=== PATIENT | female | born 1945 | race Caucasian/White ===

== ENCOUNTER → 2016-10-23 | Outpatient (CLI) | payer BC ==
[~2016-10-23] MED LIST: ASPI81TA28 PO; GLUCTAB7 PO; MCR/40125 PO; MULT-190 PO; MULTCHW PO; OXYC1CAP5 PO; PRMVC PV; SIMV40TA2 PO; [UNRECOGNIZED DRUG - CODE] PO
[2016-10-23 11:10] LABS: BASO % 0.3 %; BASO ABS # 0.01 K/uL (0-0.2); COMPLETE YES; EOS % 6.3 %; HEMATOCRIT 40.3 % (37-47); IG% 0.3 %; LYMPH % 31.8 %; LYMPH ABS # 1.21 K/uL (1.2-3.4); MEAN CELL VOLUME 89.6 fL (80-100); MEAN CORPUSCULAR HEMOGLOBIN 29.8 pg (25-34); MEAN CORPUSCULAR HGB CONC 33.3 g/dl (32-36); MEAN PLATELET VOLUME 11.4 fL (7.4-10.4); MONO % 8.4 %; NEUT % 52.9 %; PLATELET COUNT 153 K/uL (130-400)
[2016-10-23 11:17] LABS: ALT/SGPT 36 U/L (12-78); AST/SGOT 23 U/L (15-37); BLOOD UREA NITROGEN 16 mg/dl (7-18); CALCIUM 9.3 mg/dl (8.5-10.1); CARBON DIOXIDE 34 mmol/L (21-32); CHLORIDE 103 mmol/L (98-107); CREATININE 0.78 mg/dl (0.60-1.20); GLUCOSE 103 mg/dl (70-99); POTASSIUM 3.8 mmol/L (3.5-5.1); SODIUM 140 mmol/L (136-145)
[2016-10-23 11:28] LABS: ALB/GLOB RATIO 1.2 (0.9-2); ALKALINE PHOSPHATASE 69 U/L (45-117); CHOLESTEROL 170 mg/dl (0-200); CHOLESTEROL/HDL RATIO 2.8; HDL CHOLESTEROL 60 mg/dl; LDL CHOLESTEROL CALCULATED 80 mg/dl; TRIGLYCERIDES 150 mg/dl (0-150); VERY LOW DENSITY LIPOPROT CALC 30 mg/dl
[2016-10-23 11:44] LABS: ESTIMATED AVERAGE GLUCOSE 123 mg/dl; HA1C FLAG Normal (Normal)
--- NOTE | 2016-10-30 08:00 | CODING QUERY MEDICAL NECESSITY ---
SUPPORTING DIAGNOSIS NEEDED Dr. Bess, A supporting diagnosis is required for the test/procedure performed on this patient in order for us to be reimbursed by the patient's insurance. Please provide a supporting diagnosis for the following test/procedure listed below next to the test name along with your signature. *If there is no additional diagnosis for this patient that would support the following test/procedure please document that below next to the test/procedure. Test(s)/Procedure(s) that require a supporting diagnosis: * 52028 GLYCATED HEMOGLOBIN DIAGNOSIS: DATE OF SERVICE: 10/23/16 Provider Signature: Date: Thank you Alejandro Mcgowan [facility] Information Management Once completed, please kindly fax back to [phone] For questions please call [phone]
== END | disposition home or self-care (01) ==
LOC: C.LABBC 07:57
PROVIDERS: ATTEND Internal Medicine
DX: Z00.00 Encounter for general adult medical examination without abnormal findings (principal); R73.01 Impaired fasting glucose

== ENCOUNTER → 2016-11-28 | Outpatient (CLI) | payer BC ==
--- NOTE | 2016-11-28 14:14 | MAMMOGRAPHY REPORT ---
BILATERAL DIGITAL SCREENING MAMMOGRAM WITH CAD: 11/28/2016 CLINICAL HISTORY: Routine screening. Patient has no complaints. TECHNIQUE: Current study was also evaluated with a Computer Aided Detection (CAD) system. Bilateral CC and MLO views were obtained. COMPARISON: Comparison is made to exams dated: 11/04/2014 mammogram, 11/21/2015 mammogram, 11/03/2013 nelida mogram, 10/30/2012 mammogram, 10/30/2011 mammogram, and 10/25/2010 mammogram - [facility] er. BREAST COMPOSITION: There are scattered areas of fibroglandular density in both breasts. FINDINGS: No suspicious masses, calcifications, or areas of architectural distortion are noted in ei ther breast. There has been no significant interval change compared to prior exams. Asymmetry in the right posterior breast on the cc view is stable dating back to at least the 2010 exam. IMPRESSION: ACR BI-RADS CATEGORY 2: BENIGN There is no mammographic evidence of malignancy. A 1 year screening mammogram is recommended. The pa tient will receive written notification of the results. Approximately 10% of breast cancers are not detected with mammography. A negative mammographic report should not delay biopsy if a clinically suggestive mass is present. Dolly Padilla M.D. /:11/28/2016 10:12:21 [place]: Tran LEYVAR M, [facility] letter sent: Normal 1/2 BI-RADS Code: ACR BI-RADS Category 2: Benign
== END | disposition home or self-care (01) ==
LOC: C.MAMM 09:47
PROVIDERS: ATTEND Internal Medicine
DX: Z12.31 Encounter for screening mammogram for malignant neoplasm of breast (principal)

== ENCOUNTER → 2016-12-10 | Outpatient (CLI) | payer BC | END | disposition home or self-care (01) | LOC: C.CPL 10:42 | PROVIDERS: ATTEND Orthopaedic Surgery Sports Medicine | DX: S83.232D Complex tear of medial meniscus, current injury, left knee, subsequent encounter (principal); X58.XXXD Exposure to other specified factors, subsequent encounter ==

== ENCOUNTER → 2017-02-26 | Day surgery (SDC) | payer BC ==
[2017-02-19 08:40] VITALS: Ht 154.9 cm; Wt 81.4 kg
[~2017-02-26] VITALS: Ht 154.9 cm; Wt 81.4 kg
[~2017-02-26] MED LIST changes: +ATROPINE SULFATE 0.1 MG/ML 5ML SYR IV PRN; +ESCI10TA17 PO; +EpHEDrine SULFATE INJ 50 MG/ML AMP IV PRN; +LIDOCAINE HCL 2% 2 ML VIAL (20MG/ML) ONE; -MULT-190 PO; +MULT60CA PO; -OXYC1CAP5 PO; -PRMVC PV; +PROPOFOL IV EMULSION 10 MG/ML 20 ML VIAL IV ONE; +SODIUM CHLORIDE 0.9% 500ML 500 ML IV ONE
--- NOTE | 2017-02-26 09:10 | Endo History and Physical ---
History & Physical Date of Service: Feb 26, 2017. Chief Complaint: History of polyps, family history of colon cancer (sister) Referring Physician: Dr. Michael Bess History of Present Illness H/o polyps Past Surgical History Hx Cardiac Surgery: No Hx Internal Defibrillator: No Hx Pacemaker: No Hx Abdominal Surgery: Yes (PARTIAL HYSTER) Hx of Implantable Prosthesis: No Hx Post-Op Nausea and Vomiting: No Hx Cancer Surgery: No Hx Thoracic Surgery: No Hx Orthopedic: Yes (RT TKA, LT MENISCUS REPAIR) Hx Urinary Tract Surgery: Yes ("BLADDER STITCHED") Family History Colon CA Social History Smoking Status: Never Smoker Hx Substance Use: No Hx Alcohol Use: No Allergies Coded Allergies: Diclofenac (Verified Adverse Reaction, Intermediate, SICK IN STOMACH, ) Current Medications Reported Home Medications Medications Dose Route/Sig Max Daily Dose Days Date Category Preservision Areds 2 (Multiple Vitamins W/ Minerals) 1 Cap Cap 1 Cap PO BID 02/19/17 Reported Lexapro (Escitalopram Oxalate) 10 Mg Tab 10 Mg PO QAM 02/19/17 Reported Aspirin Ec (Aspirin) 81 Mg Tab 81 Mg PO QAM 01/06/15 Reported Glucosamine Chondroitin (Insyqednzom-Tikzvirtuov-Lou C-) 1 Tab Tab 1 Tab PO QAM 01/06/15 Reported Centrum Silver (Multiple Vitamins W/ Minerals) 1 Chw Chw 1 Tab PO QAM 01/06/15 Reported Caltrate 600+D Plus 600-800 mg-Unit (Calcium/Vitamin D) 600 Mg Chew 1 Tab PO BID 06/11/13 Reported Zocor (Simvastatin) 40 Mg Tab 40 Mg PO QPM 02/04/11 Reported Micardis Hct 40MG/12.5MG (Telmisartan/Hydrochlorothiazide) Tab 1 Tab PO QAM 02/04/11 Reported Vital Signs Weight (Kilograms): 81.36 Height (Feet): 5 Height (Inches): 1 Date Time Temp Pulse Resp B/P (MAP) Pulse Ox O2 Delivery O2 Flow Rate FiO2 02/26/17 08:06 36.8 72 18 148/80 (102) 95 Room Air Physical Exam General Appearance: no apparent distress Respiratory/Chest: Auscultation: breath sounds normal Cardiovascular: Heart Auscultation: RRR Abdomen: Inspection & Palpation: soft Assessment and Plan H/o polyps - cscopy
--- NOTE | 2017-02-26 09:43 | Discharge Instructions ---
Endoscopy Patient Instructions Date / Procedure(s) Performed Feb 26, 2017. Colonoscopy Allergy Information Coded Allergies: Diclofenac (Verified Adverse Reaction, Intermediate, SICK IN STOMACH, ) Discharge Date / Findings Feb 26, 2017. Diminutive polyp Medication Instructions Stopped Medication(s): Patient was told to hold everything except for the lexapro this am. Restart Stopped Medication(s): Resume all held medications today. Provider Instructions Activity Restrictions - No exercising or heavy lifting for 24 hours. - Do not drink alcohol the day of the procedure. - Do not drive a car or operate machinery until the day after the procedure. - Do not make any important decisions or sign important papers in 24 hours after the procedure. Following Day: - Return to full activity which may include returning to work/school. Diet Start your diet with liquids and light foods (jello, soup, juice, toast). Then eat your usual diet if not nauseated. Treatment For Common After Affects For mild abdominal pain, bloating, or excessive gas: - Rest - Eat lightly - Lie on right side Follow-Up Information Follow-up with Dr. Michael Bess as scheduled Anesthesia Information What You Should Know You have had a procedure that required some medicine to reduce anxiety and discomfort. This treatment is called moderate sedation. After receiving the treatment, you may be sleepy, but you will be able to breathe on your own. The effects of the treatment may last for several hours. Follow these instructions along with Activity/Diet recommendations noted above: * Do NOT do anything where dizziness or clumsiness would be dangerous. * Rest quietly at home today, then you can be up and about tomorrow. * Have a responsible person stay with you the rest of today. * You may have had an I.V. today. If so, you may take the dressing off later today. Recommendations Call your doctor if: * Trouble breathing * Continuous vomiting for more than 24 hours * Temperature above 101 degrees * Severe abdominal pain or bloating * Pain not relieved by pain medicine ordered * There is increased drainage or redness from any incision * A large amount of rectal bleeding greater than 2-3 tablespoons. (If you had a polyp/s removed or have hemorrhoids, a small amount of blood - from the rectum is to be expected.) * You have any unanswered questions or concerns. IN THE EVENT OF A SERIOUS EMERGENCY, GO TO THE NEAREST EMERGENCY ROOM Your discharge instructions were prepared by provider Leonie Malik. Patient Instructions Signature Page Nicole Espinoza Patient (or Guardian) Signature/Date: I have read and understand the instructions given to me by my caregivers. Caregiver/RN/Doctor Signature/Date: The above-named patient and/or guardian has received patient instructions on this date. + Original Patient Signature Page (only) stays with chart. Please make copy for patient.
--- NOTE | 2017-02-26 09:57 | GI REPORT ---
Procedure Date: 02/26/2017 8:42 AM Procedure: Colonoscopy Indications: Screening in patient at increased risk: Family history of 1st-degree relative with colorectal cancer Medicines: See the Anesthesia note for documentation of the administered medications Complications: No immediate complications. Estimated Blood Loss: Estimated blood loss: none. Procedure: Pre-Anesthesia Assessment: - ASA Grade Assessment: II - A patient with mild systemic disease. After I obtained informed consent, the scope was passed under direct vision. Throughout the procedure, the patient's blood pressure, pulse, and oxygen saturations were monitored continuously. The scope was introduced through the anus and advanced to the terminal ileum. The colonoscopy was performed without difficulty. The patient tolerated the procedure well. The quality of the bowel preparation was good. Findings: The perianal and digital rectal examinations were normal. A 1 mm polyp was found in the transverse colon. The polyp was sessile. The polyp was removed with a cold biopsy forceps. Resection and retrieval were complete. The exam was otherwise without abnormality. Impression: - One 1 mm polyp in the transverse colon, removed with a cold biopsy forceps. Resected and retrieved. - The examination was otherwise normal. Recommendation: - Repeat exam in 5 years, pending pathology review. - Discharge patient to home. Leonie Herron M.D. Leonie Herron MD 02/26/2017 9:56:34 AM This report has been signed electronically. Note Initiated On: 02/26/2017 8:42 AM I attest to the content of the Intraoperative Record and orders documented therein, exceptions below
--- NOTE | 2017-02-26 10:10 | Anesthesiology Progress Note ---
Anesthesia Post Op Note Date & Time Feb 26, 2017 at 10:10 Vital Signs Pain Intensity: 0 Vital Signs Past 12 Hours Date Time Temp Pulse Resp B/P (MAP) Pulse Ox O2 Delivery O2 Flow Rate FiO2 02/26/17 10:02 65 16 173/79 (110) 97 Room Air 02/26/17 09:47 71 18 159/77 (104) 100 Room Air 02/26/17 08:06 36.8 72 18 148/80 (102) 95 Room Air Notes Mental Status: alert / awake / arousable, participated in evaluation Pt Amnestic to Procedure: Yes Nausea / Vomiting: adequately controlled Pain: adequately controlled Airway Patency, RR, SpO2: stable & adequate BP & HR: stable & adequate Hydration State: stable & adequate Anesthetic Complications: no major complications apparent
[2017-02-26 10:17] VITALS: BP 177/81; PULSE 59; O2SAT 99
== END | disposition home or self-care (01) ==
LOC: C.GI 07:39
PROVIDERS: ATTEND Internal Medicine Gastroenterology
DX: Z12.11 Encounter for screening for malignant neoplasm of colon (principal); D12.3 Benign neoplasm of transverse colon; Z86.010 Personal history of colon polyps; Z80.0 Family history of malignant neoplasm of digestive organs; Z79.82 Long term (current) use of aspirin; Z79.899 Other long term (current) drug therapy

== ENCOUNTER → 2017-10-21 | Outpatient (CLI) | payer BC ==
[~2017-10-21] MED LIST changes: -ATROPINE SULFATE 0.1 MG/ML 5ML SYR IV PRN; -EpHEDrine SULFATE INJ 50 MG/ML AMP IV PRN; -LIDOCAINE HCL 2% 2 ML VIAL (20MG/ML) ONE; -PROPOFOL IV EMULSION 10 MG/ML 20 ML VIAL IV ONE; -SODIUM CHLORIDE 0.9% 500ML 500 ML IV ONE; +[UNRECOGNIZED DRUG - CODE] PO; -[UNRECOGNIZED DRUG - CODE] PO
[2017-10-21 10:32] LABS: BASO % 0.7 %; BASO ABS # 0.03 K/uL (0-0.2); EOS % 6.6 %; EOS ABS # 0.29 K/uL (0-0.5); HEMATOCRIT 41.8 % (37-47); HEMOGLOBIN 13.7 g/dL (12.0-16.0); IG# 0.01 K/uL (0.00-0.02); LYMPH ABS # 1.31 K/uL (1.2-3.4); MEAN CELL VOLUME 87.3 fL (80-100); MEAN CORPUSCULAR HEMOGLOBIN 28.6 pg (25-34); MEAN CORPUSCULAR HGB CONC 32.8 g/dl (32-36); MEAN PLATELET VOLUME 11.4 fL (7.4-10.4); MONO % 10.1 %; MONO ABS # 0.44 K/uL (0.11-0.59); NEUT % 52.4 %; NEUT ABS # 2.29 K/uL (1.4-6.5); PLATELET COUNT 155 K/uL (130-400); RED CELL DISTRIBUTION WIDTH CV 13.7 % (11.5-14.5); RED CELL DISTRIBUTION WIDTH SD 43.6 fL (36.4-46.3); WHITE BLOOD COUNT 4.37 K/uL (4.8-10.8)
[2017-10-21 10:50] LABS: HEMOGLOBIN A1C 6.1 % (4.5-5.6)
[2017-10-21 11:04] LABS: ALBUMIN 3.7 gm/dl (3.4-5.0); ALKALINE PHOSPHATASE 70 U/L (45-117); ALT/SGPT 30 U/L (12-78); AST/SGOT 22 U/L (15-37); BLOOD UREA NITROGEN 20 mg/dl (7-18); CALCIUM 9.1 mg/dl (8.5-10.1); CARBON DIOXIDE 29 mmol/L (21-32); CHOLESTEROL 165 mg/dl (0-200); GLUCOSE 104 mg/dl (70-99); LDL CHOLESTEROL CALCULATED 73 mg/dl; POTASSIUM 3.9 mmol/L (3.5-5.1); SODIUM 138 mmol/L (136-145); TOTAL PROTEIN 7.1 gm/dl (6.4-8.2)
== END | disposition home or self-care (01) ==
LOC: C.LABBC 08:01
PROVIDERS: ATTEND Internal Medicine
DX: I10 Essential (primary) hypertension (principal); R73.01 Impaired fasting glucose; F43.20 Adjustment disorder, unspecified; E78.5 Hyperlipidemia, unspecified

== ENCOUNTER 2020-02-15 10:19 | Inpatient (IN) ==
--- NOTE | 2020-01-04 10:42 | PAT Medication Instructions ---
Medication Instructions Date of Service January 04, 2020 Home Medications Medication Instructions Recorded conjugated estrogens 0.625 mg/gram 0.3125 mg PV 2XWK #30 gm 02/18/19 vaginal cream miscellaneous medical supply #1 ea 10/19/19 antiarthritic combination no.2 900 mg tablet 1,800 mg PO BID calcium carbonate 600 mg (1,500 mg)-vitamin D3 200 unit tablet 1 tab PO BID multivitamin 1 cap PO BID conjugated estrogens 0.625 mg/gram vaginal cream 0.3125 mg PV 2XWK aspirin [Aspir-81] 81 mg PO QAM escitalopram oxalate 10 mg PO QAM ibuprofen 400 mg PO Q6H PRN simvastatin 40 mg PO HS telmisartan-hydrochlorothiazide 1 tab PO QAM omega-3 fatty acids 1,000 mg capsule 1,000 mg PO DAILY Continue as directed conjugated estrogens 0.625 mg/gram vaginal cream 0.3125 mg PV 2XWK ASK your surgeon for instructions ibuprofen 400 mg PO Q6H PRN STOP taking 2 weeks before surgery If surgery is within 2 weeks, stop taking as soon as possible. antiarthritic combination no.2 900 mg tablet 1,800 mg PO BID omega-3 fatty acids 1,000 mg capsule 1,000 mg PO DAILY DO NOT take the morning of surgery calcium carbonate 600 mg (1,500 mg)-vitamin D3 200 unit tablet 1 tab PO BID multivitamin 1 cap PO BID telmisartan-hydrochlorothiazide 1 tab PO QAM Take morning of surgery With a small sip of water, OTHERWISE NOTHING TO EAT OR DRINK AFTER MIDNIGHT: aspirin [Aspir-81] 81 mg PO QAM escitalopram oxalate 10 mg PO QAM Take evening before surgery calcium carbonate 600 mg (1,500 mg)-vitamin D3 200 unit tablet 1 tab PO BID multivitamin 1 cap PO BID simvastatin 40 mg PO HS Other Notes If you have any questions please call us at [phone] or [phone] or [phone] or [phone]
--- NOTE | 2020-01-06 08:53 | Anesthesiology Consultation ---
Date of Service January 06, 2020 Assessment & Plan (1) Encounter for pre-operative examination: COVID Status: As of 01/05 assessment, patient denies travel to endemic area, known exposure/sick contacts, or symptoms of COVID19. Patient instructed that they and their household members must follow strict social distancing guidelines, wear a mask in public and avoid travel for 14 days prior to surgery. Preoperative COVID19 testing to be completed prior to surgery per surgeon's arreddi allan (pt reports date set for 01/13). Patient made aware to self-isolate as much as possible between COVID testing and surgery. PCP Clearance 12/28/19 = "Pending normal preop testing, she is low risk for cardiac complications with upcoming knee replacement surgery." Preoperative testing unremarkable other than mildly reduced WBC count. Labs available for PCP review -- awaiting final clearance. Chart Review Chart Review: Acceptable Risk for Surgery and Patient seen in Pre Admission Testing Teaching & Discussion Instructed NPO after midnight before surgery, except medications with 15 cc of water. Medication instructions provided according to the PAT guidelines. History Surgery Operation Date: 01/20/20 07:30 Proposed Procedures p Left Total Knee Arthroplasty - Mango Monsivais MD Height/Weight Height: 5 ft 1 in Weight: 84.5 kg Allergies Allergy/AdvReac Type Severity Reaction Status Date / Time diclofenac Allergy ELEVATED Verified 12/29/19 09:29 LFT's/NAUSEA capsaicin AdvReac Intermediate SICK IN Verified 12/29/19 09:29 STOMACH Diclopak AdvReac Intermediate SICK IN Verified 02/26/17 08:36 STOMACH Medications Home Medications Medication Instructions Recorded Confirmed Last Taken antiarthritic combination no.2 900 1,800 mg PO BID tab 10/21/18 12/29/19 Unknown mg tablet calcium carbonate 600 mg (1,500 1 tab PO BID 10/21/18 12/29/19 Unknown mg)-vitamin D3 200 unit tablet vitamins A,C,Y-vzxs-tssqgg 14,320 1 cap PO BID cap 10/21/18 12/29/19 Unknown unit-226 mg-200 unit capsule conjugated estrogens 0.625 mg/gram 0.3125 mg PV 2XWK #30 gm 02/18/19 12/29/19 Unknown vaginal cream miscellaneous medical supply #1 ea 10/19/19 10/19/19 Unknown aspirin [Aspir-81] 81 mg PO QAM 12/22/19 12/29/19 Unknown escitalopram oxalate 10 mg PO QAM 12/22/19 12/29/19 Unknown ibuprofen 400 mg PO Q6H PRN 12/22/19 12/29/19 Unknown simvastatin 40 mg PO HS 12/22/19 12/29/19 Unknown telmisartan-hydrochlorothiazid 1 tab PO QAM 12/22/19 12/29/19 Unknown omega-3 fatty acids 1,000 mg 1,000 mg PO DAILY 12/29/19 12/29/19 Unknown capsule Past Medical History Medical History Adult situational stress disorder Depression Hyperlipidemia Hypertension Impaired fasting glucose Left hip pain Sleep apnea CPAP SOB (shortness of breath) on exertion 1 FLIGHT Tremor HANDS-NO DX Varicose veins of leg with pain Exercise / Class Metabolic Activity II 4-5 Yardwork/Stairs/Walk up hill (Mild CERON with 1 FOS but does daily, SOB felt 2/2 knee pain/difficulty, no chest pain) Past Family History Family History Sister Rectal cancer Colorectal cancer Aunt Breast cancer Brother Leukemia Father , age 87 Acute venous embolism and thrombosis of deep vessels of proximal end of both lower extremities Denies family history of Ovarian cancer Prostate cancer Myocardial infarction Past Surgical History Surgical History H/O colonoscopy H/O oral surgery History of bladder surgery "TUCK" FOR STRESS INCONTINENCE History of meniscectomy of left knee 2016 History of total abdominal hysterectomy with ovary removal History of total knee arthroplasty RIGHT-2013 Past Anesthesia History No Hx of Anesthesia Complications and No Family Hx of Anesthesia Complications History of PONV No Hx of PONV and No Hx of Motion Sickness Social History Smoking Status: Never smoker Do You Dip or Chew Tobacco: No Hx Alcohol Use: Yes Alcohol type: wine alcohol intake frequency: a few times a month Hx Substance Use: No Review of Systems Pt denies any recent chest pain, shortness of breath, palpitations, cough, fever, URI, or uncontrolled acid reflux. Physical Exam Vital Signs BP: 133/82 P: 70bpm SPO2: 96% RA T: 98.3 F R: 12 ENMT Mouth: + dental restorations (one implant lower Left molar); no chipped teeth and no loose teeth Thyromental Distance: > or= 3.5 Finger Breadths Mallampati Class: I Neck normal visual inspection; neck extension not limited Respiratory normal respiratory effort Auscultation: lungs clear to auscultation bilaterally Cardiovascular Rate/Rhythm: regular rate and regular rhythm Heart Sounds: no murmur Vessels: no carotid bruit Testing Laboratory Results 01/06/20 09:05 01/06/20 09:05 PT 10.3 Seconds (9.0-12.0) 01/06/20 09:05 INR 1.0 (0.9-1.1) 01/06/20 09:05 APTT 29.6 Seconds (21.0-31.0) 01/06/20 09:05 Hemoglobin A1c 6.0 % (4.5-5.6) H 01/06/20 09:05 Urine Color Yellow 01/06/20 09:05 Urine Appearance Cloudy (Clear) A 01/06/20 09:05 Urine pH 7.0 (4.5-7.5) 01/06/20 09:05 Ur Specific [place] 1.019 (1.000-1.030) 01/06/20 09:05 Urine Protein Negative (Negative) 01/06/20 09:05 Urine Glucose (UA) Negative (Negative) 01/06/20 09:05 Urine Ketones Negative (Negative) 01/06/20 09:05 Urine Nitrite Negative (Negative) 01/06/20 09:05 Ur Leukocyte Esterase Negative (Negative) 01/06/20 09:05 Urine WBC (Auto) 5-10 /hpf (0-5) H 01/06/20 09:05 Urine RBC (Auto) 0-4 /hpf (0-4) 01/06/20 09:05 U Hyaline Cast (Auto) 1-5 /lpf (0-5) 01/06/20 09:05 U Epithel Cells (Auto) >30 /lpf (0-5) H 01/06/20 09:05 Urine Bacteria (Auto) 1+ (Negative) H 01/06/20 09:05 Blood Type O Positive 01/06/20 09:05 Antibody Screen NEGATIVE 01/06/20 09:05 01/06/20 09:05 Urine Culture - Final Urine,Clean Catch More than three types of organisms present, all low counts mixed probable skin chemo. No further identifications or sensitivities to follow. Electrocardiogram Date: 01/06/20 Findings: + NSR @ (70bpm) No significant change from 12/10/16. Chest X-Ray Date: 01/06/20 1. No acute cardiopulmonary findings. 2. Mild cardiomegaly.
--- NOTE | 2020-01-06 09:37 | XRay Report ---
XR chest Pre-admission PA/Lat CLINICAL HISTORY: Preoperative evaluation. COMPARISON STUDY: Chest radiograph June 11, 2013. FINDINGS: Lung volumes are normal. There is no pneumothorax or pleural effusion. Mild cardiomegaly is noted. There is no evidence for pulmonary edema. IMPRESSION: 1. No acute cardiopulmonary findings. 2. Mild cardiomegaly. ACT 112: Negative or not required by law. Electronically signed by: Johan Boggs M.D. 01/06/2020 9:36 AM
[2020-01-06 10:25] LABS: Basophils # (auto) 0.03 K/uL (0-0.2); Basophils % (auto) 0.7 %; Eosinophils # (auto) 0.24 K/uL (0-0.5); Eosinophils % (auto) 5.9 %; Hematocrit (blood only) 42.1 % (37-47); Immature Granulocytes # (auto) 0.01 K/uL (0.00-0.02); Immature Granulocytes % (auto) 0.2 %; Lymphocytes # (auto) 1.09 K/uL (1.2-3.4); Lymphocytes % (auto) 26.7 %; Mean Corpuscular Hemoglobin 27.9 pg (25-34); Mean Corpuscular Hgb Conc 30.9 g/dL (32-36); Mean Corpuscular Volume 90.3 fL (80-100); Mean Platelet Volume 11.4 fL (7.4-10.4); Monocytes % (auto) 7.3 %; Neutrophils # (auto) 2.42 K/uL (1.4-6.5); Neutrophils % (auto) 59.2 %; Platelet Count 155 K/uL (130-400); RDW Coefficient of Variation 13.8 % (11.5-14.5); RDW Standard Deviation 45.5 fL (36.4-46.3); Red Blood Count 4.66 M/uL (4.2-5.4); White Blood Count 4.09 K/uL (4.8-10.8)
[2020-01-06 10:28] LABS: Appearance Urine Cloudy (Clear); Bilirubin Urine Negative (Negative); Blood Urine Negative (Negative); Color Urine Yellow; Epithelial Cell Urine Auto >30 /lpf (0-5); Glucose Urine UA Negative (Negative); Ketones Urine Negative (Negative); Leukocyte Esterase Urine Negative (Negative); Nitrite Urine Negative (Negative); Protein Urine Negative (Negative); Specific Gravity Urine 1.019 (1.000-1.030); Urobilinogen Urine Negative (Negative)
[2020-01-06 10:33] LABS: Albumin Level 3.3 gm/dl (3.4-5.0); BUN Creatinine Ratio 33.6 (10-20); Calcium 9.4 mg/dl (8.5-10.1); Creatinine Clr Calc Pharmacy 70.5 ml/min; Est GFR (African American) 99.2; Est GFR (Non-African American) 85.6; Potassium 4.3 mmol/L (3.5-5.1)
[2020-01-06 10:43] LABS: Partial Thromboplastin Ratio 1.1; Partial Thromboplastin Time 29.6 Seconds (21.0-31.0); Prothrombin Time 10.3 Seconds (9.0-12.0)
[2020-01-06 11:09] LABS: Estimated Average Glucose 126 mg/dl
[2020-01-06 11:25] LABS: Bacteria Urine Automated 1+ (Negative); RBC Urine Automated 0-4 /hpf (0-4)
--- NOTE | 2020-01-06 11:54 | Electrocardiogram Report ---
Test Reason : Blood Pressure : / mmHG Vent. Rate : 070 BPM Atrial Rate : 070 BPM P-R Int : 142 ms QRS Dur : 080 ms QT Int : 384 ms P-R-T Axes : 076 017 047 degrees QTc Int : 414 ms Normal sinus rhythm Normal ECG When compared with ECG of 10-DEC-2016 10:56, No significant change was found Confirmed by Orlando Carr ([id number]) on 01/06/2020 11:53:48 AM Referred By: Mango Monsivais Confirmed By:Turner Carr
--- NOTE | 2020-02-14 17:46 | History and Physical Report ---
DATE OF ADMISSION: 02/15/2020 CHIEF COMPLAINT: Chronic left knee pain. HISTORY OF PRESENT ILLNESS: This is a 74-year-old female patient of Dr. Monsivais'sandi complaining of chronic left knee pain, longstanding, now progressively getting worse. The patient has failed conservative treatment and she has increased pain with weightbearing activities and her pain does interfere with her activities of daily living. The patient has been diagnosed with end-stage osteoarthritis per clinical and radiographic exams. She has failed intra-articular injections, anti-inflammatories, home exercise program and the use of a sleeve. The patient wishes to proceed with an elective left total knee arthroplasty. PAST MEDICAL HISTORY: Hypertension, hypercholesterolemia, sleep apnea with the use of CPAP, anxiety, osteoarthritis, sciatica, obesity. SOCIAL HISTORY: Nonsmoker and nondrinker. PAST SURGICAL HISTORY: Right knee replacement and hysterectomy. FAMILY HISTORY: Noncontributory. REVIEW OF SYSTEMS: Chronic left knee pain, otherwise denies any shortness of breath, chest pain, nausea, vomiting or other joint complaints. MEDICATIONS: 1. Simvastatin 40 mg daily. 2. PreserVision daily. 3. Glucosamine chondroitin daily. 4. Premarin 0.625 mg cream via vagina daily as needed. 5. Caltrate with vitamin D3 200 mg/800 mg daily. 6. Aspirin 81 mg daily. 7. Micardis 40/12.5 daily. 8. Protonix 40 mg daily. ALLERGIES: DICLOFENAC SODIUM, WHICH CAUSES GI UPSET. PHYSICAL EXAMINATION: GENERAL: Well-developed, well-nourished 74-year-old female in no acute distress. She is alert and oriented x3 and pleasant. HEENT: Normocephalic, atraumatic. Extraocular motions are intact. Pupils are equal and reactive to light. HEART: Regular rate and rhythm, no murmurs appreciated. LUNGS: Clear. ABDOMEN: Soft, nontender, bowel sounds present. EXTREMITIES: Left knee varus deformity. Medial joint line tenderness. Range of motion 0-115. Crepitation with range of motion, 5/5 strength. Neurologically and neurovascularly, she is intact in her left lower extremity. DIAGNOSES: Left knee end-stage osteoarthritis, hypertension, hypercholesterolemia, sleep apnea with use of CPAP, anxiety, osteoarthritis and obesity. PLAN: The patient was advised of her diagnosis. Indications, risks, benefits, postop course have all been reviewed. The patient wished to proceed with a left total knee arthroplasty. Necessary consent forms, preoperative testing and clearances will be obtained.
[~2020-02-15 10:19] MED LIST changes: +ACETAMINOPHEN 500 MG TAB PO SCH; -ASPI81TA28 PO; +BUPIVACAINE 0.25% 30 ML VIAL ONE; +BUPIVACAINE 0.5 % 5 MG/1 ML PF 10ML VIAL ONE; +CeleBREX 200 MG CAP PO SCH; -ESCI10TA17 PO; +FAMOTIDINE 20 MG TAB PO SCH; +GABAPENTIN 300 MG CAP PO SCH; -GLUCTAB7 PO; +LIDOCAINE HCL 2% 2 ML VIAL/AMP(20MG/ML) INFIL ONE; +LR 500ML BOLUS, THEN 15ML/HR IV SCH; -MCR/40125 PO; +METOCLOPRAMIDE HCL 10 MG TABLET PO SCH; +MIDAZOLAM HCL 1 MG/ML 2ML VIAL ONE; -MULT60CA PO; -MULTCHW PO; +PROPOFOL IV EMULSION 10 MG/ML 20 ML VIAL IV ONE; +ROPIVACAINE 0.5% HCL/PF 150 MG, BUPIVACAINE 0.5% MPF 30 ML, EPINEPHrine 30MG/30ML (OR U... INSTIL SCH; -SIMV40TA2 PO; +TRANEXAMIC ACID 1,000 MG **IV Intra-op IV SCH; +TRANEXAMIC ACID 1,000 MG **IV Pre-op IV SCH; -[UNRECOGNIZED DRUG - CODE] PO; +ceFAZolin 2000MG 2,000 MG/15 ML SYR IV SCH; +dexAMETHasone 4 MG TAB PO SCH; +fentaNYL citrate 100 MCG/2 ML VIAL ONE
--- NOTE | 2020-02-15 11:50 | History & Physical Bridge Note ---
Date of Service February 15, 2020 History & Physical Bridge Note I have examined the patient, reviewed the History & Physical and in the interval since the performance of the History & Physical I have noted the following changes of clinical significance: no changes noted
[2020-02-15] MEDS ORDERED: BACITRACIN INJ 50,000 UNIT VIAL ONE (12:20)
[2020-02-15] MEDS ORDERED: ORTHO JOINT ANESTHETIC ONE (12:20)
[2020-02-15] MEDS ORDERED: MIDAZOLAM HCL 1 MG/ML 2ML VIAL ONE (13:08)
[2020-02-15] MEDS ORDERED: ONDANSETRON INJ 2 MG/ML 2 ML VIAL ONE (13:26)
[2020-02-15] MEDS ORDERED: ATROPINE SULFATE 0.1 MG/ML 10ML SYR IV PRN (14:08)
[2020-02-15] MEDS ORDERED: ePHEDrine sulfate 50 MG/ML AMP IV PRN (14:08)
[2020-02-15] MEDS ORDERED: ONDANSETRON INJ 2 MG/ML 2 ML VIAL IV PRN ×2 (14:08→16:31)
[2020-02-15] MEDS ORDERED: fentaNYL citrate 100 MCG/2 ML VIAL IV PRN (14:08)
[2020-02-15] MEDS ORDERED: PROPOFOL IV EMULSION 10 MG/ML 20 ML VIAL IV ONE (14:12)
--- NOTE | 2020-02-15 14:39 | Post Operative Brief Note ---
Immediate Post Op Note v1 Date of Surgery February 15, 2020 Pre & Post Diagnosis Operation Date: 02/15/20 12:30 Pre-Op Diagnosis: Left Knee End-Stage Osteoarthritis, obesity BMI 35 Post-Op Diagnosis: Left Knee End-Stage Osteoarthritis, obesity BMI 35 I identified the patient and participated in the time-out.: Yes Procedure Operation Date: 02/15/20 12:30 Actual Procedures p Left Total Knee Arthroplasty(Left), superficial wound VAC- Mango Monsivais MD Surgeon Mango Monsivais MD Mild Disabilities Teacher DAVID Bravo Estimated Blood Loss 5 Findings Consistent with Post-Op Diagnosis Specimens Bone cuts Drains Hemovac Drain Anesthesia Type MAC Spinal Regional Complications none Disposition Accompanied Patient To Recovery: No Disposition: Recovery Room Overlapping Procedure I was present for: the critical portions of procedure. Back up surgeon: was not required during procedure.
--- NOTE | 2020-02-15 15:44 | XRay Report ---
XR knee LT 1 or 2V routine CLINICAL HISTORY: Surgical Post Op COMPARISON: None FINDINGS: Alignment of the total left knee arthroplasty is anatomic. There is no periprosthetic frac ture. There is no unexpected radiopaque foreign body. There are drains and skin richa. IMPRESSION: Expected findings following total left knee arthroplasty. ACT 112: Negative or not required by law. Electronically signed by: Johan Boggs M.D. 02/15/2020 3:42 PM
--- NOTE | 2020-02-15 15:55 | Anesthesiology Progress Note ---
Date of Service February 15, 2020 Anesthesia Post Procedure Vital Signs Vital Signs: Temp Pulse Pulse Resp BP BP Pulse Ox 02/15/20 15:50 36.6 C 75 16 144/73 H 94 02/15/20 15:40 78 24 165/85 H 93 02/15/20 15:30 78 20 163/93 H 94 02/15/20 15:20 76 19 157/79 H 100 02/15/20 15:11 36.5 C 83 16 160/76 H 98 02/15/20 10:56 36.9 C 75 16 189/78 H 96 Transfer of Care Handoff Completed per policy Notes Mental Status: alert / awake / arousable and participated in evaluation Nausea / Vomiting: adequately controlled Pain: adequately controlled Airway Patency, RR, SpO2: stable & adequate BP & HR: stable & adequate Hydration State: stable & adequate Neuraxial Anesthesia: was administered and sensory block is resolving Anesthetic Complications: no major complications apparent and Pt Satisfied with anesthetic care
[2020-02-15] MEDS: SODIUM CHLORIDE 0.9% 1000ML 1,000 ML IV SCH (16:00)
[2020-02-15] MEDS ORDERED: MAGNESIUM HYDROXIDE SUSP 30 ML UDC PO PRN (16:31)
[2020-02-15] MEDS ORDERED: bisacodyL 10 MG SUPP PR PRN (16:31)
[2020-02-15] MEDS ORDERED: NALOXONE HCL 0.4 MG/1 ML VIAL/CARP IV PRN (16:31)
[2020-02-15] MEDS ORDERED: diphenhydrAMINE Capsule 25 MG CAP PO PRN (16:31)
[2020-02-15] MEDS ORDERED: oxyCODONE HCL IR 5 MG TAB (IMMEDIATE RELEASE) PO PRN (16:31)
[2020-02-15] MEDS ORDERED: HYDROmorphone INJ 0.5 MG/0.5 ML SYR IV PRN (16:31)
--- NOTE | 2020-02-15 17:06 | Operative Report ---
Post Operative Report Pre & Post Diagnosis Operation Date: 02/15/20 12:30 Pre-Op Diagnosis: Left Knee End-Stage Osteoarthritis, obesity BMI 35.4 Post-Op Diagnosis: Left Knee End-Stage Osteoarthritis I identified the patient and participated in the time-out.: Yes Procedure Operation Date: 02/15/20 12:30 Actual Procedures p Left Total Knee Arthroplasty(Left), application superficial wound VAC some increased difficulty due to obesity- Mango Monsivais MD Surgeon Mango Monsivais MD Air Conditioning Unit Tester DAVID Bravo Estimated Blood Loss 5 Findings Consistent with Post-Op Diagnosis Specimens Bone cuts Drains 2 Hemovac Anesthesia Type MAC Spinal Regional Complications none Disposition Accompanied Patient To Recovery: No Disposition: Recovery Room Indications 74-year female with progressive osteoarthritis her left knee failed conservative management. Patient has successful right knee replacement in the past. Left knee has varus knee medial and patellofemoral osteoarthritis [id number] medial compartment. Description of Procedure The patient was taken to the operating room and anesthetized under spinal MAC regional. Patient was placed supine on the the operating table. A pneumatic tourniquet was placed about the obese left upper thigh. The knee exam demonstrated obese knee with an effusion moderately large and 5 through 120 degrees range of motion. The involved leg was elevated exsanguinated with Esmarch bandage and the pneumatic tourniquet was raised to 350 millimeters mercury. A longitudinal incision was made across the anterior knee. Skin flaps were elevated. An incision was made into the medial retinaculum and extended up into the mid third of the quadriceps tendon and extended down to the tibial tubercle. Intra-articular findings demonstrated medial compartment and patellofemoral OA. She had very large patellofemoral osteophytes circumferentially. She had several loose bodies. There is [id number] medial compartment.. The knee was exposed by excising cruciate ligaments and menisci. The infrapatellar fat pad was resected. The fat pad over the anterior femur at the upper aspect of the articular surface was resected for placement of the component in that area. A subperiosteal peel lateral release was performed around the patella The [employer] Yummlyney 2.0 total knee arthroplasty system was utilized for the procedure. The custom femoral cutting guide was pinned in position. The distal femoral cut was made. The size 4, 5 in 1 cutting block was placed. The anterior posterior and chamfer cuts were made. The knee was extended and a free hand cut technique was performed to the patella. The patella with was measured and the width was reproduced using a 32 patella component. 3 drill holes are made for the patella component pegs. The tibia was then subluxed. The custom tibial cutting block was pinned in position and the proximal tibial cut was made with the oscillating saw. The size 2 tibial trial was externally rotated in line with the tibial tubercle and pinned in position. The punch for the stem was used. The femoral trial was inserted and centered the notch cutting devices were used and the collet was placed. Tibial trials were used for the insert. The size 11 trial gave balanced ligaments through full range of motion. Patella tracking was assessed with range of motion. The patella tracked centrally. The trials were removed. The Orthomix anesthetic cocktail was injected per protocol. The cut bone surfaces and soft tissue were copiously irrigated with antibiotic solution with bacitracin. The final components were cemented with Simplex cement. The final components were [employer]hew journey 2.0 size 4 posterior stabilized left femur, 2 tibial baseplate, 11 mm posterior stabilized tibial poly insert, 32 symmetrical patella. After the cement cured the Betadine soak was used per protocol. the knee was copiously irrigated with pulsatile lavage antibiotic solution with bacitracin. 2 drains were brought out laterally connected to Hemovac. The quadriceps tendon and medial retinaculum were closed with interrupted [id number] #1 Vicryl sutures. The knee was taken through full range of motion and repair was secure. The subcutaneous tissues were closed with 2-0 Vicryl sutures. The skin was closed with richa. A sterile dressing was applied. The tourniquet was let down and the patient had good capillary refill to the extremity. The patient tolerated the procedure well. My physician visitor service assistant DVAID Bravo assisted in the procedure including prepping draping leg positioning soft tissue retraction instrument management and assisted in the closure , as well as application of the superficial wound VAC and will participate in postoperative care the patient. There was some increased level difficulty due to the obesity being primarily around the thigh and knee area of the patient.. I attest to the content of the Intraoperative Record and any orders documented therein. Any exceptions are noted below.
--- NOTE | 2020-02-15 18:08 | Hospitalist Consultation ---
Date of Consultation February 15, 2020 Assessment & Plan (1) DJD (degenerative joint disease): Patient status post left total knee arthroplasty 02/15/[address] Chavez Preoperative negative Covid testing 02/09/2020 (2) Hypertension: HOLD HCTZ HOLD ARB Check BMP in am Trend BPs If Cr is stable and BPs rise then reinstitute home meds Check mag level in am as well given the HCTZ use and brisk reflexes (3) Hyperlipidemia: Cont statin (4) Sleep apnea: Allow home CPAP usage. If not available then may use hospital CPAP. (5) Adult situational stress disorder: Patient takes Lexapro for her anxiety and depression (6) DVT prophylaxis: asa 81mg BID Thank you for this consult. Will follow with you. (7) S/P total knee replacement: LEFT. By Dr Monsivais. Defer pain control, IV fluids, DVT proph, dispo to orthopedics. Check CBC, BMP, mag in am. (8) Impaired fasting glucose: a1c 6% earlier this year would change diet to T2DM had steroids today - would trend BSGs (9) Depression: Cont SSRI History of Present Illness Attending Physician: Mango Monsivais MD patient is status post left total knee arthroplasty 02/15/2020 Allergies Allergy/AdvReac Type Severity Reaction Status Date / Time diclofenac Allergy ELEVATED Verified 02/15/20 10:42 LFT's/NAUSEA capsaicin AdvReac Intermediate SICK IN Verified 02/15/20 10:42 STOMACH Diclopak AdvReac Intermediate SICK IN Verified 02/26/17 08:36 STOMACH Home Medications Medication Instructions Recorded Confirmed Type antiarthritic combination no.2 900 1,800 mg PO BID tab 10/21/18 02/15/20 History mg tablet calcium carbonate 600 mg (1,500 1 tab PO BID 10/21/18 02/15/20 History mg)-vitamin D3 200 unit tablet vitamins A,C,X-prpb-yeowax 14,320 1 cap PO BID cap 10/21/18 02/15/20 History unit-226 mg-200 unit capsule conjugated estrogens 0.625 mg/gram 0.3125 mg PV 2XWK #30 gm 02/18/19 02/15/20 Rx vaginal cream miscellaneous medical supply #1 ea 10/19/19 02/15/20 Rx escitalopram oxalate 10 mg PO QAM 12/22/19 02/15/20 History simvastatin 40 mg PO HS 12/22/19 02/15/20 History omega-3 fatty acids 1,000 mg 1,000 mg PO DAILY 12/29/19 02/15/20 History capsule telmisartan 40 1 tab PO DAILY #90 tab 01/14/20 02/15/20 Rx mg-hydrochlorothiazide 12.5 mg tablet acetaminophen 1,000 mg PO Q8 30 Days #180 tab 02/16/20 Rx aspirin 81 mg PO BID 30 Days #60 tab 02/16/20 Rx oxycodone 5 mg PO Q4H PRN #30 tab 02/16/20 Rx Patient History Medical History (Updated 02/16/20 @ 06:05 by Jareth Cabrera) Adult situational stress disorder Depression Hyperlipidemia Hypertension Impaired fasting glucose Left hip pain Sleep apnea CPAP SOB (shortness of breath) on exertion 1 FLIGHT Tremor HANDS-NO DX Varicose veins of leg with pain Surgical History (Updated 02/16/20 @ 06:05 by Jareth Cabrera) H/O colonoscopy H/O oral surgery History of bladder surgery "TUCK" FOR STRESS INCONTINENCE History of meniscectomy of left knee 2016 History of total abdominal hysterectomy with ovary removal History of total knee arthroplasty RIGHT-2013 Family History Sister Rectal cancer Colorectal cancer Aunt Breast cancer Brother Leukemia Father , age 87 from acute [place] Acute venous embolism and thrombosis of deep vessels of proximal end of both lower extremities Myocardial infarction Mother Myocardial infarction Denies family history of Ovarian cancer Prostate cancer Social History (Updated 02/16/20 @ 06:01 by Jareth Cabrera) Smoking Status: Never smoker Second Hand Exposure: Yes (SPOUSE USED TO SMOKE/FATHER SMOKED); Hx Alcohol Use: Yes Alcohol type: wine Hx Substance Use: No Preferred Language: Romanian Communication Ability: Effective Visual Impairment: Limited Hearing Ability: Normal Thermostatic Controls Supervisor Required: No Beliefs That Will Affect Care: None marital status: Current Living Situation: Spouse Current Living Situation Comment: [place] current occupational status: 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 Feels Safe at Home: Yes Childhood Exposure to Second-Hand Smoke: Yes caffeine: Yes during the past year weight has: increased > 10 lbs Dental Care, Regularly: Yes Physical Activity Frequency: 3-4 Times per Week Seatbelt Use: always Sunscreen Use: Yes Assistive Devices: Walker Results & Data Results & Data ([facility]) Vital Signs (Past 12 Hours) Vital Signs Temp Pulse Pulse Resp BP BP Pulse Ox 02/15/20 17:06 66 16 139/78 93 02/15/20 16:28 97.5 F L 61 16 128/71 95 02/15/20 16:00 97.7 F 76 15 137/75 94 02/15/20 15:50 97.9 F 75 16 144/73 H 94 02/15/20 15:40 78 24 165/85 H 93 02/15/20 15:30 78 20 163/93 H 94 02/15/20 15:20 76 19 157/79 H 100 02/15/20 15:11 97.7 F 83 16 160/76 H 98 02/15/20 10:56 98.4 F 75 16 189/78 H 96 PG Care Time/CCT Total # of Minutes Spent Total Time Spent with Patient: Total time spent is greater than 50% in coordination of care (as documented) at patient's floor/unit and/or counseling patient: Coding Level of Care Code None Diagnoses DJD (degenerative joint disease) M19.90 Hypertension I10 Hypertension type: essential hypertension Hyperlipidemia E78.5 Hyperlipidemia type: unspecified Sleep apnea G47.33 Sleep apnea type: obstructive Adult situational stress disorder F43.20 DVT prophylaxis Z29.9 S/P total knee replacement Z96.652 Laterality: left Impaired fasting glucose R73.[address] cabrera completed consult and should have billed (1) Sleep apnea Sleep apnea type: obstructive Qualified Code(s): G47.33 - Obstructive sleep apnea (adult) (pediatric) (2) Hyperlipidemia Hyperlipidemia type: unspecified Qualified Code(s): E78.5 - Hyperlipidemia, unspecified (3) Hypertension Hypertension type: essential hypertension Qualified Code(s): I10 - Essential (primary) hypertension (4) S/P total knee replacement Laterality: left Qualified Code(s): Z96.652 - Presence of left artificial knee joint
[2020-02-15] MEDS: ceFAZolin 2000MG 2,000 MG/15 ML SYR IV SCH (20:08)
[2020-02-15] MEDS ORDERED: SIMVASTATIN 40 MG TAB PO SCH (21:00)
[2020-02-15] MEDS ORDERED: SENNA 8.6 MG TAB PO SCH (21:00)
[2020-02-15] MEDS: DOCUSATE SODIUM 100 MG CAP PO SCH (21:10)
[2020-02-15] MEDS: CALCIUM 600MG + VIT D 400 IU TAB PO SCH (21:10)
[2020-02-15] MEDS: ASPIRIN 81 MG ECTAB PO SCH (21:11)
[2020-02-15] MEDS: ACETAMINOPHEN 500 MG TAB PO SCH (21:11)
[2020-02-16] MEDS: SODIUM CHLORIDE 0.9% 1000ML 1,000 ML IV SCH (00:16)
[2020-02-16] MEDS: ceFAZolin 2000MG 2,000 MG/15 ML SYR IV SCH (04:12)
[2020-02-16] MEDS: ACETAMINOPHEN 500 MG TAB PO SCH ×2 (05:31→13:22)
--- NOTE | 2020-02-16 05:58 | Consultation ---
Date of Consultation February 15, 2020 Assessment & Plan (1) S/P total knee replacement: LEFT. By Dr Monsivais. Defer pain control, IV fluids, DVT proph, dispo to orthopedics. Check CBC, BMP, mag in am. (2) Hypertension: HOLD HCTZ HOLD ARB Check BMP in am Trend BPs If Cr is stable and BPs rise then reinstitute home meds Check mag level in am as well given the HCTZ use and brisk reflexes (3) Hyperlipidemia: Cont statin (4) Impaired fasting glucose: a1c 6% earlier this year would change diet to T2DM had steroids today - would trend BSGs (5) Sleep apnea: Allow home CPAP usage. If not available then may use hospital CPAP. (6) Depression: Cont SSRI (7) DVT prophylaxis: asa 81mg BID Thank you for this consult. Will follow with you. History of Present Illness Requesting Physician: Mango Monsivais MD Reason for Consultation: post-operative medical management Attending Physician: Mango Monsivais MD History of Present Illness Pleasant 74yo female with history of HTN, hyperlipidemia, and RAUL who presented today for elective left total knee replacement. I saw her post-op on the orthopedic floor and she was resting comfortably. Denied any chest pain, dyspnea, abd pain, nausea or emesis. Prior to today's surgery she has felt well without any recent COVID-19 symptoms including loss of taste/smell, fevers, chills, cough, congestion, dyspnea, or GI symptoms. COVID-19 testing on 02/09/20 was negative. Allergies Allergy/AdvReac Type Severity Reaction Status Date / Time diclofenac Allergy ELEVATED Verified 02/15/20 10:42 LFT's/NAUSEA capsaicin AdvReac Intermediate SICK IN Verified 02/15/20 10:42 STOMACH Diclopak AdvReac Intermediate SICK IN Verified 02/26/17 08:36 STOMACH Home Medications Medication Instructions Recorded Confirmed Type antiarthritic combination no.2 900 1,800 mg PO BID tab 10/21/18 02/15/20 History mg tablet calcium carbonate 600 mg (1,500 1 tab PO BID 10/21/18 02/15/20 History mg)-vitamin D3 200 unit tablet vitamins A,C,B-juzf-ncbxac 14,320 1 cap PO BID cap 10/21/18 02/15/20 History unit-226 mg-200 unit capsule conjugated estrogens 0.625 mg/gram 0.3125 mg PV 2XWK #30 gm 02/18/19 02/15/20 Rx vaginal cream miscellaneous medical supply #1 ea 10/19/19 02/15/20 Rx aspirin [Aspir-81] 81 mg PO QAM 12/22/19 02/15/20 History escitalopram oxalate 10 mg PO QAM 12/22/19 02/15/20 History ibuprofen 400 mg PO Q6H PRN 12/22/19 02/15/20 History simvastatin 40 mg PO HS 12/22/19 02/15/20 History omega-3 fatty acids 1,000 mg 1,000 mg PO DAILY 12/29/19 02/15/20 History capsule telmisartan 40 1 tab PO DAILY #90 tab 01/14/20 02/15/20 Rx mg-hydrochlorothiazide 12.5 mg tablet acetaminophen [Tylenol Extra 500 mg PO Q6H PRN 02/15/20 02/15/20 History Strength] Patient History Medical History (Updated 02/16/20 @ 06:05 by Jareth Silva) Adult situational stress disorder Depression Hyperlipidemia Hypertension Impaired fasting glucose Left hip pain Sleep apnea CPAP SOB (shortness of breath) on exertion 1 FLIGHT Tremor HANDS-NO DX Varicose veins of leg with pain Surgical History (Updated 02/16/20 @ 06:05 by Jareth Silva) H/O colonoscopy H/O oral surgery History of bladder surgery "TUCK" FOR STRESS INCONTINENCE History of meniscectomy of left knee 2016 History of total abdominal hysterectomy with ovary removal History of total knee arthroplasty RIGHT-2013 Family History Sister Rectal cancer Colorectal cancer Aunt Breast cancer Brother Leukemia Father , age 87 from acute [place] Acute venous embolism and thrombosis of deep vessels of proximal end of both lower extremities Myocardial infarction Mother Myocardial infarction Denies family history of Ovarian cancer Prostate cancer Social History (Updated 02/16/20 @ 06:01 by Jareth Silva) Smoking Status: Never smoker Second Hand Exposure: Yes (SPOUSE USED TO SMOKE/FATHER SMOKED); Do You Dip or Chew Tobacco: No; Hx Alcohol Use: Yes Alcohol type: wine Hx Substance Use: No Preferred Language: Taiwanese Communication Ability: Effective Visual Impairment: Limited Hearing Ability: Normal Oven Technician Required: No Beliefs That Will Affect Care: None marital status: Current Living Situation: Spouse Current Living Situation Comment: [place] current occupational status: 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 Other Information That Helps Us Care for You: No Feels Safe at Home: Yes Safety Concerns: Feels Safe At This Time Childhood Exposure to Second-Hand Smoke: Yes caffeine: Yes during the past year weight has: increased > 10 lbs Dental Care, Regularly: Yes Physical Activity Frequency: 3-4 Times per Week Seatbelt Use: always Sunscreen Use: Yes Assistive Devices: Walker Assistive Devices Comment: CANE PRN Review of Systems Constitutional: no fever, no chills, no fatigue and no anorexia Ear, Nose, Mouth, Throat: no nasal congestion, no sore throat and no dysphagia Respiratory: no cough and no dyspnea Cardiovascular: no chest pain and no dyspnea Gastrointestinal: no abdominal pain, no nausea and no vomiting Genitourinary: no dysuria Musculoskeletal: + joint pain (Left knee ) Integumentary: no rash Neurologic: no loss of sensation Psychiatric: + anxiety Endocrine: denies diabetes but records last a1c in 08/2019 was 6% Physical Exam Constitutional: well developed and well nourished; no acute distress and no altered mental status Eyes: PERRL ENMT: external ear and nose normal, oropharynx normal Neck: trachea midline, no thyromegaly Respiratory: normal respiratory effort, lungs clear to auscultation Cardiovascular: Rate/Rhythm: regular rate and regular rhythm Heart Sounds: normal S1 and normal S2; no murmur Vessels: posterior tibial pulses present and dorsalis pedis pulses present; no JVD Extremities: no edema Gastrointestinal (Abdomen): normal bowel sounds, soft, nontender, no hepatosplenomegaly Inspection/Auscultation: + abdomen distended (Minimal ) Musculoskeletal: left knee drain in place with dressings and ice pack Skin: no rashes, warm and dry Neurologic: moves all extremities; no focal motor deficits reflexes brisk 3+ upper extremities Psychiatric: Orientation: alert and oriented x 3 Lymphatic: no cervical lymphadenopathy Results & Data ([facility]) Vital Signs (Past 12 Hours) Vital Signs Temp Pulse Pulse Resp BP BP Pulse Ox 02/15/20 17:06 66 16 139/78 93 02/15/20 16:28 36.4 C L 61 16 128/71 95 02/15/20 16:00 36.5 C 76 15 137/75 94 02/15/20 15:50 36.6 C 75 16 144/73 H 94 02/15/20 15:40 78 24 165/85 H 93 02/15/20 15:30 78 20 163/93 H 94 02/15/20 15:20 76 19 157/79 H 100 02/15/20 15:11 36.5 C 83 16 160/76 H 98 02/15/20 10:56 36.9 C 75 16 189/78 H 96 Laboratory Results pre-op COVID testing neg pre-op labs noted EKG preop with NSR, no ST changes PG Care Time/CCT Total # of Minutes Spent Total Time Spent with Patient: Total time spent is greater than 50% in coordination of care (as documented) at patient's floor/unit and/or counseling patient: Coding Level of Care Code 82622 Subseq Hosp Care Lvl 3 Diagnoses S/P total knee replacement Z96.652 Laterality: left Hypertension I10 Hypertension type: essential hypertension Hyperlipidemia E78.5 Hyperlipidemia type: unspecified Impaired fasting glucose R73.01 Sleep apnea G47.33 Sleep apnea type: obstructive Depression F32.9 DVT prophylaxis Z29.9 (1) Sleep apnea Sleep apnea type: obstructive Qualified Code(s): G47.33 - Obstructive sleep apnea (adult) (pediatric) (2) Hyperlipidemia Hyperlipidemia type: unspecified Qualified Code(s): E78.5 - Hyperlipidemia, unspecified (3) S/P total knee replacement Laterality: left Qualified Code(s): Z96.652 - Presence of left artificial knee joint (4) Hypertension Hypertension type: essential hypertension Qualified Code(s): I10 - Essential (primary) hypertension
[2020-02-16 06:33] LABS: Hematocrit (blood only) 38.3 % (37-47); Hemoglobin 12.7 g/dL (12.0-16.0); Mean Corpuscular Hemoglobin 29.3 pg (25-34); Mean Corpuscular Hgb Conc 33.2 g/dL (32-36); Mean Corpuscular Volume 88.2 fL (80-100); Mean Platelet Volume 11.1 fL (7.4-10.4); Platelet Count 156 K/uL (130-400); RDW Coefficient of Variation 13.5 % (11.5-14.5); Red Blood Count 4.34 M/uL (4.2-5.4); White Blood Count 8.64 K/uL (4.8-10.8)
[2020-02-16 07:02] LABS: BUN Creatinine Ratio 24.7 (10-20); Calcium 9.2 mg/dl (8.5-10.1); Creatinine Clr Calc Pharmacy 54.1 ml/min; Est GFR (African American) 73.5; Est GFR (Non-African American) 63.4; Magnesium 1.9 mg/dl (1.8-2.4)
[2020-02-16] MEDS: DOCUSATE SODIUM 100 MG CAP PO SCH (07:39)
[2020-02-16] MEDS: ASPIRIN 81 MG ECTAB PO SCH (07:39)
[2020-02-16] MEDS: CALCIUM 600MG + VIT D 400 IU TAB PO SCH (07:39)
--- NOTE | 2020-02-16 07:57 | Anesthesiology Progress Note ---
Date of Service February 16, 2020 Anesthesia Post Procedure Vital Signs Vital Signs: Temp Pulse Pulse Resp BP BP Pulse Ox 02/16/20 07:26 36.7 C 61 16 153/72 H 94 02/16/20 02:22 36.4 C L 60 16 127/77 94 02/15/20 23:41 36.4 C L 60 16 120/75 93 02/15/20 19:41 36.4 C L 61 16 121/73 93 02/15/20 18:18 36.3 C L 61 16 128/77 92 02/15/20 17:06 66 16 139/78 93 02/15/20 16:28 36.4 C L 61 16 128/71 95 02/15/20 16:00 36.5 C 76 15 137/75 94 02/15/20 15:50 36.6 C 75 16 144/73 H 94 02/15/20 15:40 78 24 165/85 H 93 02/15/20 15:30 78 20 163/93 H 94 02/15/20 15:20 76 19 157/79 H 100 02/15/20 15:11 36.5 C 83 16 160/76 H 98 02/15/20 10:56 36.9 C 75 16 189/78 H 96 Notes Mental Status: alert / awake / arousable and participated in evaluation Patient Amnestic to Procedure: Yes Nausea / Vomiting: adequately controlled Pain: adequately controlled Airway Patency, RR, SpO2: stable & adequate BP & HR: stable & adequate Hydration State: stable & adequate Neuraxial Anesthesia: sensory block resolved Anesthetic Complications: no major complications apparent
--- NOTE | 2020-02-16 08:03 | Orthopedic Progress Note ---
Date of Service February 16, 2020 Assessment & Plan (1) S/P total knee replacement: POD #1, Left TKA PT/ OT DVT proph- ASA D/C planning- Home w HH, poss today after 1500 if doing well. Appreciate medicine input- BP trending down, Mag normal. Admission and Anticipated Discharge Date Admission Date: February 15, 2020 Subjective POD #1, Feeling well. Denies SOB, CP, N/V, diziness. Pain controlled well. Wishes HH on D/C. BP trending down and Mag normal. Physical Exam Physical Exam: Left knee dressings c/d/i. Toes/ ankle mobile. No calf tenderness. A&Ox3 VSS Results & Data ([facility]) Vital Signs (Past 12 Hours) Vital Signs Temp Pulse Resp BP Pulse Ox 02/16/20 07:26 36.7 C 61 16 153/72 H 94 02/16/20 02:22 36.4 C L 60 16 127/77 94 02/15/20 23:41 36.4 C L 60 16 120/75 93 (1) S/P total knee replacement Laterality: left Qualified Code(s): Z96.652 - Presence of left artificial knee joint
[2020-02-16] MEDS ORDERED: ESCITALOPRAM OXALATE 10 MG TAB PO SCH (09:00)
[2020-02-16] MEDS ORDERED: TELMISARTAN 40 MG TAB PO SCH (09:00)
[2020-02-16] MEDS ORDERED: hydroCHLOROthiazide 25 MG TAB PO SCH (09:00)
[2020-02-16] MEDS ORDERED: MULTIVITAMIN TAB PO SCH (09:00)
[2020-02-17] MEDS ORDERED: hydroCHLOROthiazide 25 MG TAB PO SCH (09:00)
[2020-02-18] MEDS ORDERED: PREMARIN VAG CRM 14 APPLN/30 GM TUBE PV SCH (09:00)
--- NOTE | 2020-02-23 19:00 | Discharge Summary (DS) ---
HISTORY OF PRESENT ILLNESS: This is a 74-year-old female patient of Dr. Monsivais's complaining of chronic left knee pain, longstanding, now progressively getting worse. The patient has failed conservative treatment and elected to proceed with a left total knee arthroplasty. POSTOPERATIVE COURSE: The patient underwent a left total knee arthroplasty on 02/15/2020. She was followed closely with medical consultation, physical therapy, pain control and DVT prophylaxis in the form of aspirin. The patient did very well postoperatively and was discharged home on postoperative day #1. PHYSICAL EXAMINATION: On discharge, left knee dressings were clean, dry and intact. There was no redness and there was no drainage. Toes and ankle were mobile. No calf tenderness. Negative Homans sign. Neurologically and neurovascularly she was intact in her left lower extremity. Drain was pulled prior to her discharge. DISCHARGE DIAGNOSES: Status post left total knee arthroplasty with a history of hypertension, hypercholesterolemia, sleep apnea, anxiety, osteoarthritis, sciatica and obesity. PLAN: The patient was discharged home on postoperative day #1 with home health services. She will continue her preadmission medications with the addition of pain medications and aspirin for DVT prophylaxis. The patient will follow up with Dr. Monsivais as scheduled as an outpatient.
== END 2020-02-16 14:53 | disposition home health service (06) | DRG 470 ==
LOC: ASU 10:19 → 3E 10:19 → OBSVTOIN 15:21

== ENCOUNTER 2024-09-30 14:49 | Observation (INO) ==
--- NOTE | 2024-09-30 15:05 | Emergency Department Note ---
Impression & Plan Atrial fibrillation with rapid ventricular response ED Provider Note HISTORY OF PRESENT ILLNESS: Patient is an 79-year-old female presenting with new onset A-fib with RVR. Patient reports she was at her primary care provider's office for routine health exam today and was found to be in A-fib with RVR and referred to the emergency department for further testing. Patient reports that today she feels very fatigued. Denies any chest pain, shortness of breath or heart palpitations. Denies any lightheadedness or dizziness. Denies any recent fevers. Denies any recent changes in medications. Denies any DVT or PE history. She is on a baby aspirin daily but no other antiplatelet or anticoagulant therapies. ROS: as above PHYSICAL EXAM: Constitutional: Patient appears in no acute distress. HENT: Head: Normocephalic and atraumatic. Eyes: EOMI, PERRL Mouth/Throat: Mucous membranes moist. Neck: Trachea midline. Neck supple. Cardiovascular: Tachycardic with irregularly irregular rhythm. No murmurs, rubs or gallops. Intact distal pulses. Pulmonary/Chest: No respiratory distress. Breath sounds clear and equal bilaterally. No wheezes or rales. Abdominal: Abdomen soft, no tenderness, rebound or guarding. Musculoskeletal: No edema, tenderness or deformity noted. Skin: Warm and dry. No rash, erythema, pallor or cyanosis Psychiatric: Appropriate mood and affect for situation. Neurological: Alert and keenly responsive. CN II-XII grossly intact, moving all extremities equally and fully. MDM: - Vitals signs showed hypertension and tachycardia. - History obtained via patient. History as above. - Chronic conditions affecting care: HTN; HLD; depression; DM-2 - Differential diagnoses include, but are not limited to: dysrhythmia; ACS; electrolyte abnormality; PE; dehydration - Order placed for continuous cardiac monitoring. At this time, monitor showed rate of 126 bpm with irregular rhythm, per my interpretation. - External medical records reviewed. Wellness visit note dated 09/29/2024 was reviewed. Patient was seen for her annual Medicare wellness exam. She was found to be tachycardic in the clinic and had an EKG that showed A-fib with RVR. - EKG image interpreted by myself showed atrial fibrillation. Rate tachycardia at 134 bpm. QT 282. No acute ischemic changes. - Echocardiogram dated 10/07/2023 was reviewed. Patient had a normal EF at 60 to 65%. Previous echocardiogram from 07/03/2023 was reviewed and patient was in sinus rhythm at that time. - 10 mg IV cardizem administered. However, no improvement in heart rate. Given additional 10 mg IV Cardizem bolus and started on a Cardizem drip. - Laboratory workup interpreted by myself showed normal WBC; stable electrolytes; elevated total bilirubin (2.0) with normal AST/ALT; normal lipase; normal troponin - CXR image reviewed by myself negative for pneumonia, per my interpretation. - Patient's HR minimally controlled on cardizem drip. Will admit to hospitalist service. - Discussion was had with skilled nursing case manager about patient's case and need for admission - Hospitalist consulted for admission - Patient admitted to [facility] hospitalist service for further evaluation and management. I have personally spent 46 minutes of critical care time in the direct management of this patient. This includes bedside care, interpretation of diagnostic studies, and testing, discussion with consultants, patient, and family members, and other required patient management activities. This 46 minutes is in excess of all separately billable procedures. ASSESSMENT AND PLAN: Diagnosis: Atrial fibrillation with rapid ventricular rate Plan: Admit Past Med/Surg History Problem List (Updated 09/30/24 @ 15:05 by Yadira Leon MD) Atrial fibrillation with rapid ventricular response (Acute) Recurrent UTI Nocturia Microscopic hematuria Diabetes Dizziness Vitamin B12 deficiency Severe obstructive sleep apnea Memory impairment Myalgia Arthralgia Chronic knee pain after total replacement of knee joint Knee pain, bilateral Hyperextension injury of cervical spine TMJ (temporomandibular joint disorder) Osteopenia after menopause BMI 35.0-35.9,adult S/P total knee replacement Depression 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) Osteoarthritis of knee (Chronic) Left hip pain (Chronic) Impaired fasting glucose (Chronic) Hypertension (Chronic) Hyperlipidemia (Chronic) Generalized osteoarthritis (Chronic) Adult situational stress disorder (Chronic) DJD (degenerative joint disease) (Chronic 07/08/13) Medical History Tremor SOB (shortness of breath) on exertion Surgical History History of cataract surgery History of left knee replacement History of bladder surgery History of total knee arthroplasty History of total abdominal hysterectomy H/O oral surgery H/O colonoscopy History of meniscectomy of left knee Family History Sister Colorectal cancer Aunt Breast cancer Brother Leukemia Father Acute venous embolism and thrombosis of deep vessels of proximal end of both lower extremities Myocardial infarction Mother Myocardial infarction Denies family history of Ovarian cancer Prostate cancer Social History Smoking Status: Never smoker Second Hand Exposure: No (SPOUSE USED TO SMOKE/FATHER SMOKED); Do You Dip or Chew Tobacco: No; Hx Alcohol Use: Yes (Very rarely) Alcohol type: wine Alcohol Intake Frequency: Monthly or Less Alcohol Intake Frequency Comment: socially Hx Substance Use: No Preferred Language: Nigerian Communication Ability: Effective Visual Impairment: Limited Hearing Ability: Normal 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 Beliefs That Will Affect Care: None marital status: Current Living Situation: Spouse Current Living Situation Comment: [place] current occupational status: 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 Feels Safe at Home: Yes Childhood Exposure to Second-Hand Smoke: Yes (father smoked ) caffeine: Yes (drinks coffee every day ) during the past year weight has: increased > 10 lbs Dental Care, Regularly: Yes Physical Activity Frequency: 1-2 Times per Week Physical Activity Frequency Comment: tries to walk, rides a bike for 15 minutes to help her knee Seatbelt Use: always Sunscreen Use: Yes (sometimes ) Assistive Devices: Walker Allergies Allergies Allergy/AdvReac Type Severity Reaction Status Date / Time diclofenac Allergy ELEVATED Verified 09/30/24 13:13 LFT's/NAUSEA capsaicin AdvReac Intermediate SICK IN Verified 09/30/24 13:13 STOMACH Diclopak AdvReac Intermediate SICK IN Verified 02/26/17 08:36 STOMACH Home Meds Home Medications Medication Instructions Recorded Confirmed vitamins A,C,I-lbfl-prooei 4,296 1 cap PO BID 10/21/18 09/30/24 mcg-226 mg-90 mg capsule (ICaps AREDS) aspirin 81 mg chewable tablet 81 mg PO DAILY 01/04/23 09/30/24 cholecalciferol (vitamin D3) 50 50 mcg PO DAILY 09/30/24 09/30/24 mcg (2,000 unit) capsule duloxetine 30 mg capsule,delayed 30 mg PO DAILY 09/30/24 09/30/24 release Previous Rx's Medication Instructions Recorded mecobalamin (vitamin B12) 1,000 2,000 mcg PO DAILY #60 ea 06/10/23 mcg lozenges amlodipine 5 mg tablet 5 mg PO DAILY #90 tabs 12/31/23 rosuvastatin 5 mg tablet 5 mg PO DAILY #90 tabs 06/16/24 telmisartan 40 mg tablet 40 mg PO DAILY #90 tabs 06/22/24 Results & Data (ED) Vital Signs Vital Signs - 24 hr 09/30/24 14:53 09/30/24 15:18 09/30/24 15:59 Temperature 36.4 C L Temperature Source Skin Pulse Rate 124 H 137 H Pulse Rate [Right Finger] 144 H Pulse Rhythm [Right Finger] Regular Pulse Strength [Right Finger] Normal Respiratory Rate 20 16 Respiratory Effort / Characteristics Non-Labored Spontaneous Non-Labored Respiratory Depth Normal Normal Respiratory Pattern Regular Blood Pressure 150/77 H Blood Pressure [Right Arm] 156/110 H Blood Pressure Mean 101 Blood Pressure Mean [Right Arm] 125 Pulse Oximetry 94 93 Oxygen Delivery Method Room Air Room Air Sepsis Recent Fever Within 48 Hours No Sepsis New/Unexplained Change in Mental Status N/A Sepsis Action Taken by Nursing No Action Required 09/30/24 16:02 Temperature Temperature Source Pulse Rate Pulse Rate [Right Finger] Pulse Rhythm [Right Finger] Pulse Strength [Right Finger] Respiratory Rate Respiratory Effort / Characteristics Respiratory Depth Respiratory Pattern Blood Pressure Blood Pressure [Right Arm] Blood Pressure Mean Blood Pressure Mean [Right Arm] Pulse Oximetry 95 Oxygen Delivery Method Room Air Sepsis Recent Fever Within 48 Hours Sepsis New/Unexplained Change in Mental Status Sepsis Action Taken by Nursing Laboratory Data 09/30/24 15:21 09/30/24 15:21 Lab Results 09/30/24 Range/Units 15:21 WBC 5.48 (4.8-10.8) K/ul RBC 4.89 (4.20-5.40) M/uL Hgb 14.1 (12.0-16.0) g/dl Hct 43.1 (37.0-47.0) % MCV 88.1 (80.0-100.0) fL MCH 28.8 (25.0-34.0) pg MCHC 32.7 (32.0-36.0) g/dL RDW Std Deviation 47.9 H (36.4-46.3) fL RDW Coeff of Cristofer 14.8 H (11.5-14.5) % Plt Count 163 (130-400) K/uL MPV 11.0 (9.4-12.4) fL Immature Gran % (Auto) 0.4 % Neut % (Auto) 51.6 % Lymph % (Auto) 34.7 % [place] % (Auto) 9.3 % Eos % (Auto) 3.6 % Baso % (Auto) 0.4 % Neut # (Auto) 2.83 (1.40-6.50) K/uL Lymph # (Auto) 1.90 (1.20-3.40) K/uL [place] # (Auto) 0.51 (0.11-0.59) K/uL Eos # (Auto) 0.20 (0.00-0.50) K/uL Baso # (Auto) 0.02 (0.00-0.20) K/uL Immature Gran # (Auto) 0.02 (0.01-0.20) K/uL Sodium 139 (136-145) mmol/L Potassium 4.5 (3.5-5.1) mmol/L Chloride 102 (98-107) mmol/L Carbon Dioxide 26 (21-32) mmol/L Anion Gap 11 (3-11) BUN 17 (6-23) mg/dl Creatinine 0.95 (0.6-1.2) mg/dl Est Cr Clr Drug Dosing 49.4 ml/min eGFR 60.57 BUN/Creatinine Ratio 17.9 (10-20) Glucose 98 (70-99(Fasting)) mg/dl Calcium 10.2 (8.6-10.3) mg/dl Magnesium 2.1 (1.7-2.4) mg/dl Total Bilirubin 2.0 H (0.2-1.0) mg/dl AST 29 (13-39) U/L ALT 46 (7-52) U/L Alkaline Phosphatase 88 (34-104) U/L Troponin I High Sens 5.1 (0-14) pg/ml Total Protein 7.7 (6.0-8.3) gm/dl Albumin 4.4 (3.4-5.0) gm/dl Globulin 3.3 (2.5-4.0) gm/dl Albumin/Globulin Ratio 1.3 (0.9-2) Lipase 37 (11-82) U/L Administered Medications Diltiazem HCl 125 mg/ Dextrose 125 mls @ 5 mls/hr IV .Q24H PERRY; Protocol Stop: 10/30/24 15:29 Last Titration: 09/30/24 16:08 Dose: 10 mg/hr, 10 mls/hr Documented By: OPAL Co-signed By: KIMI Admin: 09/30/24 15:35 Dose: 5 mg/hr, 5 mls/hr Documented By: OPAL Co-signed By: LILLY Discontinued Medications Diltiazem HCl (Diltiazem Hcl 5 Mg/Ml 5 Ml Vial) 10 mg IV NOW STA Stop: 09/30/24 15:04 Last Admin: 09/30/24 15:23 Dose: 10 mg Documented By: OPAL Co-signed By: VELMA Diltiazem HCl (Diltiazem Hcl 5 Mg/Ml 5 Ml Vial) 10 mg IV NOW STA Stop: 09/30/24 15:21 Last Admin: 09/30/24 15:33 Dose: 10 mg Documented By: OPAL Co-signed By: LILLY Miscellaneous (Stat Iv Infusion Titration Per Protocol) 1 each N/A NOW STA Stop: 09/30/24 15:21 Last Admin: 09/30/24 15:37 Dose: Not Given Documented By: OPAL Imaging Data Radiologist's Impression: Chest X-Ray 09/30/24 14:57 XR chest 1V portable CLINICAL HISTORY: Chest pain, nonspecific COMPARISON STUDY: 01/06/2020 FINDINGS: Stable mild cardiomegaly without pulmonary vascular congestion. No effusion or consolidation. No pneumothorax. IMPRESSION: No acute findings. ACT 112: Negative or not required by law. Electronically signed by: Stevie Bernstein M.D. 09/30/2024 3:26 PM Discharge Plan Visit Data Chief Complaint: Recheck/Abnormal Lab/Rx Stated Complaint: ABN DIAGNOSTIC TESTING ED Provider: Yadira Leon Discharge Problem: Atrial fibrillation with rapid ventricular response Condition: Serious Forms Stand Alone Forms: Monitor Prescriptions Prescriptions: No Action amlodipine 5 mg tablet 5 mg PO DAILY Qty: 90 3RF rosuvastatin 5 mg tablet 5 mg PO DAILY Qty: 90 3RF ICaps AREDS 14,320-226-200 [id number] capsule 1 cap PO BID aspirin 81 mg tablet,chewable 81 mg PO DAILY duloxetine 30 mg capsule,delayed release(DR/EC) 30 mg PO DAILY cholecalciferol (vitamin D3) 50 mcg (2,000 unit) capsule 50 mcg PO DAILY telmisartan 40 mg tablet 40 mg PO DAILY Qty: 90 3RF mecobalamin (vitamin B12) 1,000 mcg lozenge 2,000 mcg PO DAILY Qty: 60 1RF Rx Instructions: allow to dissolve in mouth OR may chew lightly before swallowing Referrals Referrals: Kim Prince DO [Primary Care Provider] -
--- NOTE | 2024-09-30 15:27 | XRay Report ---
XR chest 1V portable CLINICAL HISTORY: Chest pain, nonspecific COMPARISON STUDY: 01/06/2020 FINDINGS: Stable mild cardiomegaly without pulmonary vascular congestion. No effusion or consolidatio n. No pneumothorax. IMPRESSION: No acute findings. ACT 112: Negative or not required by law. Electronically signed by: Stevie Bernstein M.D. 09/30/2024 3:26 PM
[2024-09-30] MEDS: STAT IV Infusion **Titration per Protocol STA (15:37)
[2024-09-30 15:41] LABS: Hematocrit (blood only) 43.1 % (37.0-47.0); Hemoglobin 14.1 g/dl (12.0-16.0); Immature Granulocytes # (auto) 0.02 K/uL (0.01-0.20); Immature Granulocytes % (auto) 0.4 %; Mean Corpuscular Hemoglobin 28.8 pg (25.0-34.0); Mean Corpuscular Volume 88.1 fL (80.0-100.0); Platelet Count 163 K/uL (130-400); RDW Standard Deviation 47.9 fL (36.4-46.3); Red Blood Count 4.89 M/uL (4.20-5.40); White Blood Count 5.48 K/ul (4.8-10.8)
--- NOTE | 2024-09-30 15:42 | Electrocardiogram Report ---
Test Reason : Blood Pressure : */* mmHG Vent. Rate : 134 BPM Atrial Rate : * BPM P-R Int : * ms QRS Dur : 60 ms QT Int : 282 ms P-R-T Axes : * -11 180 degrees QTcB Int : 421 ms Atrial fibrillation with rapid ventricular response Inferior infarct , age undetermined Abnormal ECG When compared with ECG of 06-Jan-2020 09:01, Atrial fibrillation has replaced Sinus rhythm Vent. rate has increased by 64 bpm Inferior infarct is now Present Nonspecific T wave abnormality, worse in Inferior leads Nonspecific T wave abnormality now evident in Lateral leads Confirmed by Tee Lawrence ([id number]) on 09/30/2024 3:41:38 PM Referred By: Confirmed By: Tee Lawrence
[2024-09-30 15:58] LABS: Alanine Aminotransferase 46.0 U/L (7-52); Albumin Globulin Ratio 1.3 (0.9-2); Alkaline Phosphatase 88.0 U/L (34-104); Anion Gap 11.0 (3-11); Bilirubin,Total 2.0 mg/dl (0.2-1.0); Blood Urea Nitrogen 17.0 mg/dl (6-23); Calcium 10.2 mg/dl (8.6-10.3); Carbon Dioxide 26.0 mmol/L (21-32); Chloride 102.0 mmol/L (98-107); Creatinine Clr Calc Pharmacy 49.4 ml/min; Globulin 3.3 gm/dl (2.5-4.0); Glucose 98.0 mg/dl (70-99(Fasting)); Lipase 37.0 U/L (11-82); Magnesium 2.1 mg/dl (1.7-2.4); Potassium 4.5 mmol/L (3.5-5.1); Sodium 139.0 mmol/L (136-145); Total Protein 7.7 gm/dl (6.0-8.3)
[2024-09-30 16:25] LABS: INR 1.0 (0.9-1.1); Prothrombin Time 10.6 Seconds (9.0-12.0)
[2024-09-30 16:47] LABS: Thyroid Stimulating Hormone 2.61 uIu/ml (0.300-4.500)
[2024-09-30] MEDS: METOPROLOL TARTRATE 1 MG/ML VIAL IV STA (17:29)
--- NOTE | 2024-09-30 17:37 | History & Physical Report ---
Date of Service September 30, 2024 Assessment & Plan (1) Atrial fibrillation with rapid ventricular response: (2) Severe obstructive sleep apnea: (3) Hypertension: (4) Hyperlipidemia: Plan #A-fib RVRfortunately minimally symptomaticfatigue being the only symptom at all that might tie back to her atrial fibrillation. Given that it is predominantly A-fib, will give trial for rate control. Has already been started on a diltiazem drip and titrated up to 15 an hourminimal response. Will continue this for now and add metoprolol5 mg IV now and then every 4 hours. If we obtain rate control, we will try to transition over to more p.o. metoprolol than diltiazem if at all possible. Check echocardiogram. TSH is normal. Has sleep apnea but is being treated. Anticoagulate with Eliquis. Risk/benefits discussed. If rate control is difficult to obtain, and especially if she is showing more flutter than fibrillation as her situation progresses, low threshold to consult cardiology for cardioversionbut hopefully that will not be needed at this time. #OSACPAP. Fortunately she wears it regularly at home #hypertensioncontinue home amlodipine and telmisartan. Elevated blood pressure allows a lot of margin of error for titrating atrial fibrillation/rate controlling medications #hyperlipidemiacontinue rosuvastatin #elevated Tbili - of questionable significance - outpatient recheck unless sx develop. #DVT prophylaxisEliquis d/w pt and - full code. History of Present Illness Chief Complaint: sent by PCP Primary Care Provider: Kim Prince DO patient is a very pleasant 79-year-old female who was sent over by her PCP. She was in the office for a routine visit and was found to be quite tachycardic. EKG showed A-fib. Sent to the ER for further management. We have been asked to admit. In the ER she was started on diltiazem, titrated up to 15 an hour, and her heart rates have really only improved to [id number] instead of persistently higher. Patient herself only really notes fatigue today. No chest pain no shortness of breath no other symptoms at all. Understandably wondered why she even needed to come to the hospital. Chart reviewed, past medical history noted. present at the bedside. She does have known sleep apnea, but she does use her CPAP regularly. Allergies Allergy/AdvReac Type Severity Reaction Status Date / Time diclofenac Allergy ELEVATED Verified 09/30/24 13:13 LFT's/NAUSEA capsaicin AdvReac Intermediate SICK IN Verified 09/30/24 13:13 STOMACH Diclopak AdvReac Intermediate SICK IN Verified 02/26/17 08:36 STOMACH Home Medications Medication Instructions Recorded Confirmed Type vitamins A,C,B-tarp-prkjgr 4,296 1 cap PO BID 10/21/18 09/30/24 History mcg-226 mg-90 mg capsule (ICaps AREDS) aspirin 81 mg chewable tablet 81 mg PO DAILY 01/04/23 09/30/24 History mecobalamin (vitamin B12) 1,000 2,000 mcg PO DAILY #60 ea 06/10/23 09/30/24 Rx mcg lozenges amlodipine 5 mg tablet 5 mg PO DAILY #90 tabs 12/31/23 09/30/24 Rx rosuvastatin 5 mg tablet 5 mg PO DAILY #90 tabs 06/16/24 09/30/24 Rx telmisartan 40 mg tablet 40 mg PO DAILY #90 tabs 06/22/24 09/30/24 Rx cholecalciferol (vitamin D3) 50 50 mcg PO DAILY 09/30/24 09/30/24 History mcg (2,000 unit) capsule duloxetine 30 mg capsule,delayed 30 mg PO DAILY 09/30/24 09/30/24 History release Past Med/Surg History Problem List Atrial fibrillation with rapid ventricular response (Acute) Recurrent UTI Nocturia Microscopic hematuria Diabetes Dizziness Vitamin B12 deficiency Severe obstructive sleep apnea Memory impairment Myalgia Arthralgia Chronic knee pain after total replacement of knee joint Knee pain, bilateral Hyperextension injury of cervical spine TMJ (temporomandibular joint disorder) Osteopenia after menopause BMI 35.0-35.9,adult S/P total knee replacement Depression 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) Osteoarthritis of knee (Chronic) Left hip pain (Chronic) Impaired fasting glucose (Chronic) Hypertension (Chronic) Hyperlipidemia (Chronic) Generalized osteoarthritis (Chronic) Adult situational stress disorder (Chronic) DJD (degenerative joint disease) (Chronic 07/08/13) Medical History Tremor HANDS-NO DX SOB (shortness of breath) on exertion 1 FLIGHT Surgical History History of cataract surgery History of left knee replacement History of bladder surgery "TUCK" FOR STRESS INCONTINENCE History of total knee arthroplasty RIGHT-2014 History of total abdominal hysterectomy with ovary removal H/O oral surgery H/O colonoscopy History of meniscectomy of left knee 2017 Family History Sister Colorectal cancer Aunt Breast cancer Brother Leukemia Father , age 87 from acute LA Acute venous embolism and thrombosis of deep vessels of proximal end of both lower extremities Myocardial infarction Mother Myocardial infarction Denies family history of Ovarian cancer Prostate cancer Social History Smoking Status: Never smoker Second Hand Exposure: No (SPOUSE USED TO SMOKE/FATHER SMOKED); Do You Dip or Chew Tobacco: No; Hx Alcohol Use: Yes (Very rarely) Alcohol type: wine Alcohol Intake Frequency: Monthly or Less Alcohol Intake Frequency Comment: socially Hx Substance Use: No Preferred Language: Liberian Communication Ability: Effective Visual Impairment: Limited Hearing Ability: Normal Live In Housekeeper Nanny Required: No Beliefs That Will Affect Care: None marital status: Current Living Situation: Spouse Current Living Situation Comment: [place] current occupational status: 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 Feels Safe at Home: Yes Childhood Exposure to Second-Hand Smoke: Yes (father smoked ) caffeine: Yes (drinks coffee every day ) during the past year weight has: increased > 10 lbs Dental Care, Regularly: Yes Physical Activity Frequency: 1-2 Times per Week Physical Activity Frequency Comment: tries to walk, rides a bike for 15 minutes to help her knee Seatbelt Use: always Sunscreen Use: Yes (sometimes ) Assistive Devices: Walker Review of Systems Review of Systems: All systems reviewed & are unremarkable except as noted in HPI & below Physical Exam Physical Exam: In general she is awake alert oriented x 3 pleasant no acute distress. HEENT normocephalic atraumatic mucous membranes moist. Cardio is irregularly irregular and quite tachycardic. Lungs are clear to auscultation except for exceedingly faint bibasilar rales more consistent with atelectasis than pulmonary edema, especially given that she has no accessory muscle use no conversational dyspnea no appearance of dyspnea whatsoever. No rhonchi no wheezes. Skin shows no rashes no pallor or icterus. EKG shows A-fib at about 140 no ischemic changes. ER physician noted that periodically on monitor under her care the patient would switch between fib and fluttershe was only appearing to be in fib whenever I was in the room with her. Results & Data Results & Data Vital Signs (Past 12 Hours) Vital Signs Temp Pulse Pulse Resp BP BP Pulse Ox 09/30/24 17:29 142 H 152/101 H 09/30/24 16:24 145 H 16 157/95 H 95 09/30/24 16:02 95 09/30/24 15:59 137 H 09/30/24 15:18 144 H 16 156/110 H 93 09/30/24 14:53 97.5 F L 124 H 20 150/77 H 94 O2 Del Method 09/30/24 17:29 09/30/24 16:24 Room Air 09/30/24 16:02 Room Air 09/30/24 15:59 09/30/24 15:18 Room Air 09/30/24 14:53 Room Air Code Status & VTE Plan VTE Prophylaxis Plan VTE Prophylaxis will be ordered: Yes PG Care Time/CCT Total # of Minutes Spent Total Time Spent with Patient: Total time spent is greater than 50% in coordination of care (as documented) at patient's floor/unit and/or counseling patient: Coding Level of Care Code 52766 INT INP/OBS CARE 3/75MIN Diagnoses Atrial fibrillation with rapid ventricular response I48.91 Severe obstructive sleep apnea G47.33 Essential hypertension I10 Hypertension type: essential hypertension Hyperlipidemia, unspecified hyperlipidemia type E78.5 Hyperlipidemia type: unspecified (3) Hypertension Hypertension type: essential hypertension Qualified Code(s): I10 - Essential (primary) hypertension (4) Hyperlipidemia Hyperlipidemia type: unspecified Qualified Code(s): E78.5 - Hyperlipidemia, unspecified
[2024-09-30] MEDS ORDERED: ALUMINUM/MAGNESIUM SUSP 30 ML UDC PO PRN (18:43)
[2024-09-30] MEDS ORDERED: ONDANSETRON INJ 2 MG/ML 2 ML VIAL IV PRN (18:43)
[2024-09-30] MEDS ORDERED: POLYETHYLENE (MIRALAX) 17 GM PACK PO PRN (18:43)
[2024-09-30] MEDS ORDERED: MAGNESIUM HYDROXIDE SUSP 30 ML UDC PO PRN (18:43)
[2024-09-30] MEDS ORDERED: ACETAMINOPHEN 325 MG TAB PO PRN (18:43)
[2024-09-30] MEDS: APIXABAN 5 MG TABLET PO SCH (21:00)
[2024-09-30] MEDS: METOPROLOL TARTRATE 1 MG/ML VIAL IV SCH (21:00)
[2024-10-01] MEDS: MELATONIN 3 MG TAB PO PRN (00:33)
--- NOTE | 2024-10-01 07:24 | Hospitalist Progress Note ---
Date of Service October 01, 2024 Assessment & Plan Plan #A-fib RVRfortunately minimally symptomaticfatigue being the only symptom at all that might tie back to her atrial fibrillation. Given that it is predominantly A-fib, will give trial for rate control. Has already been started on a diltiazem drip and titrated up to 15 an hourminimal response. Will continue this for now and add metoprolol5 mg IV now and then every 4 hours. If we obtain rate control, we will try to transition over to more p.o. metoprolol than diltiazem if at all possible. Check echocardiogram. TSH is normal. Has sleep apnea but is being treated. Anticoagulate with Eliquis. Risk/benefits discussed. If rate control is difficult to obtain, and especially if she is showing more flutter than fibrillation as her situation progresses, low threshold to consult cardiology for cardioversionbut hopefully that will not be needed at this time. #OSACPAP. Fortunately she wears it regularly at home #hypertensioncontinue home amlodipine and telmisartan. Elevated blood pressure allows a lot of margin of error for titrating atrial fibrillation/rate controlling medications #hyperlipidemiacontinue rosuvastatin #elevated Tbili - of questionable significance - outpatient recheck unless sx d evelop. #DVT prophylaxisEliquis d/w pt and - full code. Admission and Anticipated Discharge Date Admission Date: September 30, 2024 Subjective Overnight events: Ongoing symptoms: New concerns Review of Systems 2 Review of Systems: As per HPI Results & Data Results & Data Vital Signs (Past 12 Hours) Vital Signs Temp Pulse Pulse Resp BP BP Pulse Ox 10/01/24 05:02 85 111/69 10/01/24 04:47 91 H 116/75 10/01/24 03:40 36.5 C 91 H 18 134/82 93 10/01/24 00:09 90 122/78 09/30/24 23:54 94 H 127/84 09/30/24 23:06 89 09/30/24 22:28 36.4 C L 78 18 128/81 92 09/30/24 22:20 72 29 H 96 09/30/24 21:15 93 H 113/78 09/30/24 21:00 91 H 128/84 O2 Del Method 10/01/24 05:02 10/01/24 04:47 10/01/24 03:40 Room Air 10/01/24 00:09 09/30/24 23:54 09/30/24 23:06 09/30/24 22:28 Room Air 09/30/24 22:20 09/30/24 21:15 09/30/24 21:00
[2024-10-01] MEDS: ASPIRIN 81 MG ECTAB PO SCH (08:57)
[2024-10-01] MEDS: CHOLECALCIFEROL 25 MCG (1000 UNITS) TAB PO SCH (08:58)
[2024-10-01] MEDS: LOSARTAN POTASSIUM 50 MG TAB PO SCH (08:58)
[2024-10-01] MEDS: CEROVITE ADV FORMULA TAB PO SCH (08:58)
[2024-10-01] MEDS: CYANOCOBALAMIN (B-12) 500 MCG TABLET PO SCH (08:58)
[2024-10-01] MEDS: ROSUVASTATIN CALCIUM 5 MG TAB PO SCH (08:59)
[2024-10-01] MEDS: METOPROLOL SUCC 50MG EXT REL TAB PO SCH (10:55)
[2024-10-01 11:57] VITALS: BP 131/65; PULSE 79; RESP 16; TEMP 98.2; O2SAT 93
--- NOTE | 2024-10-01 13:51 | XCELERA ---
[id number] \\[id number]
--- NOTE | 2024-10-01 14:35 | Electrocardiogram Report ---
Test Reason : Blood Pressure : */* mmHG Vent. Rate : 81 BPM Atrial Rate : * BPM P-R Int : * ms QRS Dur : 84 ms QT Int : 390 ms P-R-T Axes : * 14 44 degrees QTcB Int : 453 ms Atrial fibrillation Low voltage QRS Cannot rule out Inferior infarct (cited on or before 30-Sep-2024) Abnormal ECG When compared with ECG of 30-Sep-2024 15:01, Vent. rate has decreased by 53 bpm Confirmed by Tee Lawrence ([id number]) on 10/01/2024 2:34:41 PM Referred By: REFERRED SELF Confirmed By: Tee Lawrence
--- NOTE | 2024-10-01 16:45 | Discharge Summary ---
Date of Service October 01, 2024 Admission HPI Per Admitting Provider patient is a very pleasant 79-year-old female who was sent over by her PCP. She was in the office for a routine visit and was found to be quite tachycardic. EKG showed A-fib. Sent to the ER for further management. We have been asked to admit. In the ER she was started on diltiazem, titrated up to 15 an hour, and her heart rates have really only improved to [id number] instead of persistently higher. Patient herself only really notes fatigue today. No chest pain no shortness of breath no other symptoms at all. Understandably wondered why she even needed to come to the hospital. Chart reviewed, past medical history noted. present at the bedside. She does have known sleep apnea, but she does use her CPAP regularly. Admission Exam Per Admitting Provider patient is a very pleasant 79-year-old female who was sent over by her PCP. She was in the office for a routine visit and was found to be quite tachycardic. EKG showed A-fib. Sent to the ER for further management. We have been asked to admit. In the ER she was started on diltiazem, titrated up to 15 an hour, and her heart rates have really only improved to [id number] instead of persistently higher. Patient herself only really notes fatigue today. No chest pain no shortness of breath no other symptoms at all. Understandably wondered why she even needed to come to the hospital. Chart reviewed, past medical history noted. present at the bedside. She does have known sleep apnea, but she does use her CPAP regularly. Principal Diagnosis Atrial Fibrillation Discharge Data Allergies Allergy/AdvReac Type Severity Reaction Status Date / Time diclofenac Allergy ELEVATED Verified 09/30/24 13:13 LFT's/NAUSEA capsaicin AdvReac Intermediate SICK IN Verified 09/30/24 13:13 STOMACH Diclopak AdvReac Intermediate SICK IN Verified 02/26/17 08:36 STOMACH Consultations 09/30/24 16:09 ED Decision to Admit Stat Hospital Course (1) Atrial fibrillation with rapid ventricular response: Plan Patient is 79 Y O Female admitted for management of Atrial Fibrillation. 1. Atrial Fibrillation -Rate controlled with IV Metoprolol -Switch to PO Metoprolol -Continue PO metoprolol 100mg qAM at home -Continue Eliquis 5 mg BID -F/U with PCP within next week -Continue home meds Total Time Total Time Spent Total Time Spent (In Minutes): less than 30 Discharge Plan Discharge Items Patient Disposition: Home - Self-Care Reason For Visit: AFIB,RVR Discharge Diagnosis: 1. Atrial fibrillation Condition on Discharge: Serious Activity: Resume your previous activity Non-emergency contact: Primary Care Provider Call non-emergency contact if: you have any medication questions and your symptoms worsen Follow-up/Referrals: Kim Prince DO [Primary Care Provider] - 10/05/24 10:30 am (Scheduled with ZAIRA Aponte on October 05 at 10:30 am) Diet: Heart Healthy Addtl Attending Provider Instructions: You were admitted to the hospital for Atrial Fibrillation. You were treated with IV Metoprolol to control your rate. You were switched to oral Metoprolol which controlled your heart rate. You need to take Metoprolol at home to control your heart rate and Eliquis to prevent the risk of stroke from Atrial Fibrillation A discharge summary will be sent to your primary care physician to ensure continuity of care. Please bring this discharge summary with you to your next office appointment so that your provider can review it at that time. Follow-up appointments: Make a follow-up appointment with your PCP within the next week. It is very important that you follow up with them shortly after discharge from the hospital.] Keep all your follow-up appointments as already scheduled. If you cannot make an appointment, notify your provider. Medications: Your medication list has been reviewed and reconciled upon discharge to ensure accuracy and continuity of care. An updated list of all your medications is included with your hospital discharge paperwork. Please review this list closely, and make note of any changes. We sent a new medication called Metoprolol to your pharmacy. Take Metoprolol as instructed We sent a new medication called Eliquis to your pharmacy. Take Eliquis as instructed If you have any issues filling these prescriptions, please call [phone] and ask to leave a message for Dr. Ignacia Terrell Take your medications as instructed; do not skip a dose of your medicines. Make sure all of your doctors know every medicine you are taking (including grek-ypu-diprrly medicines, vitamins, and supplements). Call your primary care provider before taking any new medicines (including overthe- counter medicines, vitamins, and supplements), because some of these may interact with your current medications, or may make your symptoms worse. Tell your primary care provider if you cannot afford your medications. CONTACT YOUR PRIMARY CARE PROVIDER if you experience any of the following: Worsening of your symptoms Difficulty following your treatment plan, or difficulty taking medications CALL 911 OR GO TO THE EMERGENCY DEPARTMENT if you experience any of the following: Sudden, severe abdominal pain or nausea/vomiting Severe chest pain, or chest pain that radiates (moves) to your jaw or arm Sudden, severe shortness of breath or difficulty breathing Thank you for allowing us to participate in your care. . Pending Studies at Discharge: No Stand-Alone Forms: My [facility], Smoking Cessation Medications and DC Order Prescriptions: New Eliquis 5 mg Tablet 5 mg PO BID 30 Days Qty: 60 0RF metoprolol succinate 100 mg tablet extended release 24 hr 100 mg PO DAILY 30 Days Qty: 30 1RF Continued amlodipine 5 mg tablet 5 mg PO DAILY Qty: 90 3RF rosuvastatin 5 mg tablet 5 mg PO DAILY Qty: 90 3RF ICaps AREDS [id number] capsule 1 cap PO BID duloxetine 30 mg capsule,delayed release(DR/EC) 30 mg PO DAILY cholecalciferol (vitamin D3) 50 mcg (2,000 unit) capsule 50 mcg PO DAILY telmisartan 40 mg tablet 40 mg PO DAILY Qty: 90 3RF mecobalamin (vitamin B12) 1,000 mcg lozenge 2,000 mcg PO DAILY Qty: 60 1RF Rx Instructions: allow to dissolve in mouth OR may chew lightly before swallowing Discontinued aspirin 81 mg tablet,chewable 81 mg PO DAILY Discharge Orders: Discharge Order (Routine); Ordered 10/01/24 Ordered By: Ignacia Terrell Admission Data Admit Date/Time: 09/30/24 16:40 Attending Provider: Bill Prince Admit Provider: Bill Prince Primary Care Provider: Kim Prince Other Providers: Bill Prince Other Interventions: Discharge Summary Assessment (RN) Last Done: 10/01/24 15:14 Supervising Physician Co-Signing Physician Notes I personally examined the patient and verified all house points of history and exam, discussed case, and agree with decision making with Dr Terrell feeling good. Feels up to going home. Discussed rate control, discussed anticoagulation again. She expressed good understanding. Echo noted and discussed with patient. Vitals noted, in general she is awake and alert p leasant no distress. HEENT normocephalic atraumatic mucous membranes moist. Cardio is now rate controlled. Breathing unlabored no accessory muscle use good effort. Skin without rashes pallor or icterus. New onset atrial fibrillationcame in in RVR, now rate controlled. Home on metoprolol and Eliquis. Outpatient follow-up next week. Otherwise as above
--- NOTE | 2024-10-01 17:10 | Billing Data ---
Date of Service October 01, 2024 Coding Level of Care Code 60056 IN/OBS DISCH 30 MIN/LESS
== END 2024-10-01 16:43 | disposition home or self-care (01) ==
LOC: ED 14:49 → 2S 14:49